=== PATIENT | male | born 1970 | race Two or more races ===

== ENCOUNTER 2020-04-14 10:32 | Outpatient (REF) | payer SELFPAY | END 2020-04-14 10:33 | disposition home or self-care (01) | LOC: HO.LAB 10:32 | PROVIDERS: Visit Provider Internal Medicine | DX: Z20.828 Contact with and (suspected) exposure to other viral communicable diseases (principal) | CPT/HCPCS: C9803; U0003 ==

== ENCOUNTER 2020-04-22 14:32 | Outpatient (REF) | payer SELFPAY | END 2020-04-22 14:33 | disposition home or self-care (01) | LOC: HO.LAB 14:32 | PROVIDERS: Visit Provider Internal Medicine | DX: Z20.828 Contact with and (suspected) exposure to other viral communicable diseases (principal) | CPT/HCPCS: C9803; U0003 ==

== ENCOUNTER 2020-06-04 11:06 | Emergency (ER) | payer OTHER, SELFPAY ==
[2020-06-04 12:41] VITALS: BP 169/88; PULSE 86; RESP 18; TEMP 37.3; O2SAT 98; BMI 28.0
--- NOTE | 2020-06-04 13:30 | ED_ITS ---
HPI - General Adult General Chief complaint: Headache Stated complaint: covid symptoms Time Seen by Provider: 06/04/20 12:52 Source: patient Mode of arrival: ambulatory Limitations: no limitations History of Present Illness HPI narrative: 50 y/o male presenting with generalized body aches and pains as well as headaches. He states he has also had low grade fevers & some mild nausea with 1 episode of diarrhea. He denies SOB, chest pain, cough, abdominal pain. No known COVID-19 exposure. MD complaint: flu-like symptoms Onset (ago): day(s) (1) Location: head Radiation: non-radiation Severity: moderate Severity scale (1-10): 8 Quality: aching Pain Consistency: constant Relieving factors: rest Exacerbating factors: movement Associated symptoms: fever/chills, headaches, loss of appetite, nausea/vomiting and weakness Treatments prior to arrival: none Related Data Allergies Allergy/AdvReac Type Severity Reaction Status Date / Time No Known Allergies Allergy Unverified 01/16/20 17:06 Review of Systems Review of Systems: Constitutional: No Fever, No Chills ENT/Mouth: No sore throat, No Rhinorrhea, No Swallowing Difficulty Cardiovascular: No Chest Pain, No SOB, No Orthopnea, No Edema Respiratory: No Cough, No Sputum, No Wheezing, No dyspnea Gastrointestinal: + Nausea, No Vomiting, + Diarrhea, No abdominal Pain Genitourinary: No Dysuria, No Urinary Frequency, No Hematuria Musculoskeletal: No joint pain, + Myalgias Skin: No Skin Lesions, No rash Neuro: + Weakness, No Numbness, No Dizziness, + Headache Heme/Lymph: No Bruising, No Lymphadenopathy Endocrine: No Polyuria, No Polydipsia [facility] Past Medical History Attestation statement: The following information was validated with the patient. Social History Social History Advance Directives: No Advance Directives Information Provided: No Physical Exam Vital Signs: Vital Signs: Last Vital Signs Temp 99.2 F 06/04/20 12:41 Pulse 86 06/04/20 12:41 Resp 18 06/04/20 12:41 BP 169/88 H 06/04/20 12:41 Pulse Ox 98 06/04/20 12:41 Body Mass Index 28.0 Appearance: Alert. Oriented X3. No acute distress. Eyes: Pnormal inspection ENT: Pharynx normal. Neck: Normal inspection. Neck supple. CVS: Normal heart rate and rhythm. Pulses normal. Respiratory: No respiratory distress. Breath sounds normal. Abdomen: Soft and nontender. +BS x4 Skin: Skin warm and dry. Normal skin color. Normal skin turgor. No rashes. Extremities: No lower extremity edema. Negative Mena's sign. Neuro: Oriented X 3. No motor deficit. No sensory deficit. Ambulates with steady gait. Course Course Course Narrative: 50 y/o male presenting with headache, body aches, low grade fever, diarrhea x1. Symptoms consistent with COVID-19. VSS and exam is benign. Will get Resp PCR panel & monitor. Reevaluation(s) Reevaluation #1: COVID positive. Patient counseled on diagnosis, management and warning signs to prompt urgent medical evaluation. patient expressed understanding. stable for d/c. Medical Decision Making Lab Data Labs: Lab Results 06/04/20 Range/Units 13:27 Coronavirus (PCR) POSITIVE A (Negative) Influenza Type A (PCR) NEGATIVE (Negative) Influenza Type B (PCR) NEGATIVE (Negative) RSV RNA Qual (PCR) NEGATIVE (Negative) Critical Care Time Critical Care Time Critical Care Time: No Discharge Plan Discharge Clinical Impression: COVID-19 Patient Disposition: Home, Self-Care Instructions: COVID-19 (Coronavirus Disease 2019) (ED) Additional Instructions: You were found to be COVID-19 POSITIVE today. Your exam and oxygen levels were normal. Rest. Drink plenty of fluids. Do not go out in public for the next 14 days. Take over the counter cold/flu medications as needed for your symptoms. Take Tylenol and/or Motrin as needed for fevers and body aches. Follow up with your doctor this week. If you shortness of breath worsens , if you develop difficulty breathing or any other concerning symptom come back to the ER for further evaluation. Stand Alone Forms: Work/School Release
[2020-06-04 14:30] LABS: Influenza A PCR NEGATIVE (Negative); Influenza B PCR NEGATIVE (Negative); Resp Syncy Virus RNA Qual PCR NEGATIVE (Negative); SARS COV2 PCR INHOUSE POSITIVE (Negative)
== END 2020-06-04 15:54 | disposition home or self-care (01) ==
PROVIDERS: Physician Assistant; Emergency Provider Emergency Medicine
DX: U07.1 COVID-19 (principal); R51.9 Headache, unspecified; R50.9 Fever, unspecified; M79.10 Myalgia, unspecified site
CPT/HCPCS: 0241U; 36415; 99283

== ENCOUNTER → 2020-10-20 10:08 | Outpatient (BNVA) | payer OTHER, SELFPAY | PROVIDERS: Visit Provider Physician Assistant | DX: S61.316A Laceration without foreign body of right little finger with damage to nail, initial encounter (principal); X58.XXXA Exposure to other specified factors, initial encounter | CPT/HCPCS: 12001; 73140; 90715; 99204 ==

== ENCOUNTER → 2020-10-22 11:16 | Outpatient (BNVA) | payer OTHER, SELFPAY | PROVIDERS: Visit Provider Physician Assistant Medical | DX: S61.316A Laceration without foreign body of right little finger with damage to nail, initial encounter (principal); W31.89XA Contact with other specified machinery, initial encounter | CPT/HCPCS: 99213 ==

== ENCOUNTER → 2020-10-30 10:03 | Outpatient (BNVA) | payer OTHER, SELFPAY | PROVIDERS: Visit Provider Physician Assistant Medical | DX: S61.32 Laceration with foreign body of finger with damage to nail (principal); X58.XXXD Exposure to other specified factors, subsequent encounter | CPT/HCPCS: 99212 ==

== ENCOUNTER 2021-09-25 08:08 | Outpatient (REF) | payer OTHER, SELFPAY ==
[2021-09-25 09:46] LABS: Hematocrit 43.4 % (42.0-52.0); Hemoglobin 14.8 g/dl (14.0-18.0); Mean Corpuscular HGB Conc 34.1 g/dl (31.0-36.0); Mean Corpuscular Hemoglobin 30.1 pg (27.0-33.0); Mean Corpuscular Volume 88.4 fL (80.0-98.0); Mean Platelet Volume 9.5 fL (9.4-12.4); Platelet Count 306 X10*3/uL (160-400); Red Blood Count 4.91 X10*6/uL (4.60-5.80); Red Cell Distribution Width 12.3 % (11.0-16.0); White Blood Count 4.6 X10*3/uL (4.8-10.8)
[2021-09-25 10:11] LABS: Estimated Average Glucose 126 mg/dL
[2021-09-25 10:20] LABS: Alanine Aminotransferase 37 U/L (0-40); Albumin Level 4.2 g/dL (3.5-5.0); Alkaline Phosphatase 54 U/L (39-117); Anion Gap 12 (12-20); Aspartate Amino Transferase 23 U/L (5-37); Bilirubin Total 0.6 mg/dL (0.0-1.0); Blood Urea Nitrogen 21 mg/dL (9-16); Calcium 9.7 mg/dL (8.4-10.2); Carbon Dioxide 23 mmol/L (22-29); Chloride 107 mmol/L (96-108); Cholesterol 203 mg/dL; Estimated Glomerular Filt Rate > 60; Glucose Random 111 mg/dL (60-115); HDL Cholesterol 34 mg/dL; LDL Cholesterol Calculated 154 mg/dl; Potassium 4.2 mmol/L (3.3-5.1); Sodium 138 mmol/L (135-145); Total Protein 7.6 g/dL (6.5-8.0); Triglycerides 75 mg/dL
[2021-09-25 10:42] LABS: Prostate Specific Antigen 0.79 ng/mL (<0.05-4.0)
[2021-09-25 13:30] LABS: CT PCR NOT DETECTED (Not Detect.); NG PCR NOT DETECTED (Not Detect.)
[2021-09-28 08:13] LABS: ~HepC Num1 0.07 S/CO (0.00-0.79); ~Hepatitis C Antibody Nonreactive (Nonreactive)
[2021-09-28 08:15] LABS: HBS Num1 78.93 mIU/mL (0-7.99); HBsAGNum1 0.22 S/CO (0.00-0.99); HIV AB/AG Nonreactive (Nonreactive); HIV Num 1 0.09 S/CO (0.00-0.99); Hepatitis B Surface Antigen Negative (Negative); ~Hepatitis B Surface Antibody REACTIVE (Nonreactive)
[2021-09-29 09:00] LABS: Syphilis Screen Nonreactive (Nonreactive)
[2021-09-29 09:31] LABS: Hepatitis A Antibody IgG Nonreactive (Nonreactive); ~Hepatitis A Antibody IgG 0.32 S/CO (0.00-0.99)
== END 2021-09-25 08:09 | disposition home or self-care (01) ==
LOC: HO.LAB 08:08
PROVIDERS: PCP Internal Medicine Geriatric Medicine; Visit Provider Internal Medicine Geriatric Medicine
DX: Z11.4 Encounter for screening for human immunodeficiency virus [HIV] (principal); Z11.2 Encounter for screening for other bacterial diseases; Z12.5 Encounter for screening for malignant neoplasm of prostate; Z13.220 Encounter for screening for lipoid disorders; I10 Essential (primary) hypertension; Z72.89 Other problems related to lifestyle
CPT/HCPCS: 80053; 80061; 83036; 84153; 85027; 86592; 86706; 86708; 86780; 86803; 87340; 87389; 87491; 87591

== ENCOUNTER 2021-10-01 14:40 | Outpatient (REF) | payer OTHER, SELFPAY ==
[2021-10-01 15:16] LABS: COVID-19 Test Negative (Negative)
== END 2021-10-01 14:41 | disposition home or self-care (01) ==
LOC: HO.LAB 14:40
PROVIDERS: Visit Provider Internal Medicine
DX: Z20.822 Contact with and (suspected) exposure to COVID-19 (principal)
CPT/HCPCS: 87635; C9803

== ENCOUNTER → 2021-10-18 10:27 | Outpatient (BNVA) | payer OTHER, SELFPAY | PROVIDERS: PCP Internal Medicine Geriatric Medicine; Visit Provider Surgery | DX: K42.9 Umbilical hernia without obstruction or gangrene (principal); M62.08 Separation of muscle (nontraumatic), other site; R10.9 Unspecified abdominal pain; I10 Essential (primary) hypertension; Z87.898 Personal history of other specified conditions | CPT/HCPCS: 99202 ==

== ENCOUNTER 2021-12-02 13:11 | Outpatient (REF) | payer OTHER, SELFPAY ==
[2021-12-02 14:09] LABS: COVID-19 Test Positive (Negative)
== END 2021-12-02 13:12 | disposition home or self-care (01) ==
LOC: HO.LAB 13:11
PROVIDERS: Visit Provider Internal Medicine
DX: Z20.822 Contact with and (suspected) exposure to COVID-19 (principal)
CPT/HCPCS: 87635; C9803

== ENCOUNTER 2021-12-28 16:43 | Outpatient (REF) | payer OTHER, SELFPAY ==
--- NOTE | ~2021-12-28 | XR_ITS ---
EXAMINATION: XR SHOULDER, LEFT CLINICAL INFORMATION: Pain. COMPARISON: Radiograph of the left shoulder 11/12/2018. TECHNIQUE: Four views of the left shoulder. FINDINGS: Chronic superolateral deformity of the humeral head adjacent to the greater trochanter suspicious for a Hill-Sachs injury. No acute fracture or malalignment. Mild degenerative osteoarthritis of the acromioclavicular joint. No significant soft tissue abnormality. XR/XR shoulder LT min 2V IMPRESSION: Findings suspicious for chronic Hill-Sachs injury. No acute fracture or malalignment. Mild osteoarthrosis of the AC joint.
== END 2021-12-28 16:44 | disposition home or self-care (01) ==
LOC: HO.XRAY 16:43
PROVIDERS: PCP Internal Medicine Geriatric Medicine; Visit Provider Internal Medicine Geriatric Medicine
DX: M25.512 Pain in left shoulder (principal)
CPT/HCPCS: 73030

== ENCOUNTER 2022-01-12 05:26 | Emergency (ER) | payer OTHER, SELFPAY ==
[2022-01-12 05:36] VITALS: BP 159/100; PULSE 85; RESP 16; TEMP 36.6; O2SAT 96; BMI 33.2
--- NOTE | 2022-01-12 05:58 | PC.NURSE ---
Pt. in room with foot pain d/t blister that popped open and drained fluid.
--- NOTE | 2022-01-12 06:43 | ED.EXTPRO ---
HPI - Extremity Problem General Chief complaint: Extremity Problem Stated complaint: Bilateral foot pain/No inj Time Seen by Provider: 01/12/22 06:42 Source: patient Mode of arrival: ambulatory Limitations: no limitations History of Present Illness Complaint: other (rash on foot) Onset (ago): week(s) (2) Pain Consistency: constant Location: left (foot) Quality: dull Radiation: none Relieving factors: medication (using cream fungal and betamethasone from 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) Related Data Home Medications Medication Instructions Recorded Confirmed amlodipine 10 mg tablet 10 mg PO DAILY 10/18/21 10/18/21 diclofenac sodium 1 % topical gel g topical BID 10/18/21 10/18/21 Allergies Allergy/AdvReac Type Severity Reaction Status Date / Time No Known Allergies Allergy Unverified 10/18/21 10:39 Review of Systems Review of Systems: Constitutional : No Fever, No Chills ENT/Mouth : No sore throat, No Rhinorrhea Eyes: No Eye Pain, No Swelling, No Redness Cardiovascular : No Chest Pain, No SOB Respiratory : No Cough, No Sputum Gastrointestinal : No Nausea, No Vomiting, No Diarrhea, No abdominal Pain Genitourinary : No Dysuria, No Hematuria Musculoskeletal : No joint pain, No Myalgias, No Joint Swelling Skin : No Skin Lesions, positive skin rash Neuro : No Weakness, No Numbness, No Headache PMFSH Past Medical History Attestation statement: The following information was validated with the patient. Medical History History of prediabetes HTN (hypertension) Family History Family History Maternal Aunt Breast cancer Social History Social History Alcohol intake: current Alcohol intake frequency: holidays/special occasions only Patient Tobacco Use Status: Never used Tobacco Advance Directives: No Advance Directives Information Provided: No Physical Exam Vital Signs: Vital Signs: Last Vital Signs Temp 98 F 01/12/22 05:36 Pulse 85 01/12/22 05:36 Resp 16 01/12/22 05:36 BP 159/100 H 01/12/22 05:36 Pulse Ox 96 01/12/22 05:36 O2 Del Method 01/12/22 05:36 BMI result Body Mass Index 33.2 Appearance: Alert. Oriented X3. No acute distress. Eyes: Pupils equal, round and reactive to light. ENT: Pharynx normal. Neck: Normal inspection. Neck supple. CVS: Pulses normal. Respiratory: No respiratory distress. Abdomen: Soft and nontender. Skin: Skin warm and dry. Normal skin color. L foot thickened callous areas but with open healing pink soft area on plantar surface of the foot fluid filled clear blister noted no erythema no warmth no yellow drainage no fluctuance no maceration Extremities: No lower extremity edema. Neuro: Oriented X 3. No motor deficit. No sensory deficit. MDM - Extremity (Nontraumatic) MDM Narrative Medical decision making narrative: 51 yo male with hx of HTN, pre-diabetes has callouses on the feet L has opened currently on athlets foot cream now has clear draining blister no signs of infection, still has some thickened areas of callous at this time will instruct good wound care and refer to podiatry Discharge Plan Discharge Clinical Impression: Callus of foot Patient Disposition: Home, Self-Care Instructions: Blister (ED) Additional Instructions: return to ED for any worsening symptoms or concerns you need to see a restorative care technician continue cream between toes monitor for increased redness, yellow drainage, fevers - keep clean and dry Prescriptions: No Action amlodipine 10 mg tablet 10 mg PO DAILY diclofenac sodium 1 % gel topical BID Referrals: Alo Lopez MD [Physician] - 1 week Stand Alone Forms: Work/School Release
== END 2022-01-12 07:19 | disposition home or self-care (01) ==
PROVIDERS: Emergency Provider Emergency Medicine; PCP Internal Medicine Geriatric Medicine
DX: L84 Corns and callosities (principal)
CPT/HCPCS: 99282; 99283

== ENCOUNTER 2022-01-28 05:37 | Outpatient (REF) | payer OTHER, SELFPAY ==
--- NOTE | ~2022-01-28 | CT_ITS ---
EXAMINATION: CT ABDOMEN AND PELVIS WITHOUT CONTRAST CLINICAL INFORMATION: Abdominal pain COMPARISON: Previous CT of the abdomen and pelvis most recent from 2012 TECHNIQUE: Multidetector volumetric imaging was performed from the superior aspect of the liver through the pubic symphysis. Sagittal and coronal reformatted images were obtained on the technologist's workstation. This CT examination was performed using dose optimization techniques as appropriate, variously including the following: *Automated exposure control *Adjustment of mA and/or kV according to patient size (this includes techniques or standardized protocols for targeted exams where dose is matched to indication/reason for exam; i.e. extremities or head) *Use of iterative reconstruction technique DLP: 682 mGy-cm FINDINGS: LUNG BASES: The visualized lung bases are unremarkable. LIVER, GALLBLADDER, AND BILIARY TREE: There is fatty infiltration of the liver and areas of focal fatty sparing. The liver is upper normal in size. No focal liver lesion or biliary duct dilatation. Normal gallbladder. PANCREAS: Unremarkable. SPLEEN: Unremarkable. ADRENAL GLANDS: Unremarkable. KIDNEYS AND URETERS: The kidneys are normal in size, shape, and attenuation. No hydronephrosis, hydroureter, or calculi seen. No perinephric stranding. BLADDER: Not optimally distended. GASTROINTESTINAL TRACT: There is stool throughout the colon questionable for constipation. The small and large bowel are otherwise unremarkable. The appendix is not seen. There are no inflammatory changes in the right lower quadrant. ABDOMINAL WALL: There is a midline ventral or supraumbilical hernia containing fat, 3.7 cm above the umbilicus. There is a small umbilical hernia containing fat. No inguinal hernia. LYMPH NODES: There is bilateral inguinal lymphadenopathy, left greater than right. There is question of some mild fat stranding surrounding one of the larger left inguinal lymph nodes questionable for lymphadenitis. No other adenopathy. No ascites. VASCULAR: Unremarkable. PELVIC VISCERA: Unremarkable OSSEOUS STRUCTURES: Degenerative changes of the lower lumbar spine. CT/CT abdomen pelvis wo IV con IMPRESSION: Fatty infiltration of the liver. Stool throughout the colon questionable for constipation. Umbilical and supraumbilical hernias containing fat. Prominent inguinal lymph nodes, left greater than right and question left inguinal lymphadenitis. Fleischner guidelines were followed.
[2022-01-28] MEDS: Barium Sulfate Oral (Mocha) 450 ML ORAL.SUSP 900 ML PO (08:14)
== END 2022-01-28 05:38 | disposition home or self-care (01) ==
LOC: HO.CT 05:37
PROVIDERS: PCP Internal Medicine Geriatric Medicine; Visit Provider Surgery
DX: K42.9 Umbilical hernia without obstruction or gangrene (principal); M62.08 Separation of muscle (nontraumatic), other site
CPT/HCPCS: 74176

== ENCOUNTER → 2022-02-04 16:09 | Outpatient (BNVA) | payer OTHER, SELFPAY | PROVIDERS: PCP Internal Medicine Geriatric Medicine; Visit Provider Surgery | DX: M62.08 Separation of muscle (nontraumatic), other site (principal); K42.9 Umbilical hernia without obstruction or gangrene; R73.03 Prediabetes; L73.9 Follicular disorder, unspecified; Z68.33 Body mass index [BMI] 33.0-33.9, adult | CPT/HCPCS: 99212 ==

== ENCOUNTER 2022-02-18 15:23 | Outpatient (REF) | payer OTHER, SELFPAY ==
[2022-02-18 16:01] LABS: COVID-19 Test Negative (Negative); IDNOW Serial# 16C4AD1C
== END 2022-02-18 15:24 | disposition home or self-care (01) ==
LOC: HO.LAB 15:23
PROVIDERS: Visit Provider Internal Medicine
DX: Z20.822 Contact with and (suspected) exposure to COVID-19 (principal)
CPT/HCPCS: 87635; C9803

== ENCOUNTER 2022-02-23 11:45 | Outpatient (REF) | payer OTHER, SELFPAY ==
--- NOTE | ~2022-02-23 | US_ITS ---
EXAMINATION: US VENOUS ULTRASOUND WITH DOPPLER LOWER EXTREMITY, LEFT CLINICAL INFORMATION: Left lower extremity swelling. COMPARISON: None TECHNIQUE: Ultrasound of the deep veins is performed from the hip to the calf with compression sonography and color and pulse Doppler assessment. Spectral analysis with color-flow imaging is performed. FINDINGS: There is normal venous compression and respiratory variation and augmented flow. The visualized common femoral vein, superficial femoral vein, profunda femoral vein, popliteal vein, and the trifurcation region shows no evidence of deep venous thrombosis. No left popliteal cyst. Mild subcutaneous edema in the left calf. Reniform left inguinal lymph node measures up to 2.4 cm in long axis. If the patient's symptoms persist, followup ultrasound in 5 days 7 days might be of value to exclude proximal propagation from a non-visualized calf vein. US/US venous duplex LE LT IMPRESSION: No evidence for deep venous thrombosis in the visualized veins of the left lower extremity. Mild subcutaneous edema in the left calf.
== END 2022-02-23 11:46 | disposition home or self-care (01) ==
LOC: HO.US 11:45
PROVIDERS: PCP Internal Medicine Geriatric Medicine; Visit Provider Internal Medicine Geriatric Medicine
DX: R60.0 Localized edema (principal)
CPT/HCPCS: 93971

== ENCOUNTER → 2022-03-04 10:14 | Outpatient (BNVA) | payer OTHER, SELFPAY | PROVIDERS: PCP Internal Medicine Geriatric Medicine; Referring Provider Internal Medicine Geriatric Medicine; Visit Provider Surgery | DX: K42.9 Umbilical hernia without obstruction or gangrene (principal); K43.9 Ventral hernia without obstruction or gangrene; R73.03 Prediabetes; B35.3 Tinea pedis; L03.116 Cellulitis of left lower limb; L02.416 Cutaneous abscess of left lower limb; Z68.33 Body mass index [BMI] 33.0-33.9, adult | CPT/HCPCS: 99212 ==

== ENCOUNTER → 2022-03-11 15:48 | Outpatient (BNVA) | payer OTHER, SELFPAY | PROVIDERS: PCP Internal Medicine Geriatric Medicine; Visit Provider Dietitian, Registered | DX: E66.9 Obesity, unspecified (principal) | CPT/HCPCS: 97802 ==

== ENCOUNTER 2022-03-15 17:00 | Outpatient (RCR) | payer OTHER, SELFPAY | END 2022-03-22 18:04 | disposition home or self-care (01) | LOC: HO.PT 17:00 | PROVIDERS: PCP Internal Medicine Geriatric Medicine; Visit Provider Internal Medicine Geriatric Medicine | DX: M25.512 Pain in left shoulder (principal) | CPT/HCPCS: 97110; 97140; 97161 ==

== ENCOUNTER → 2022-05-13 15:34 | Outpatient (BNVA) | payer OTHER, SELFPAY | PROVIDERS: PCP Internal Medicine Geriatric Medicine; Visit Provider Surgery | DX: K43.9 Ventral hernia without obstruction or gangrene (principal); R73.03 Prediabetes; M62.08 Separation of muscle (nontraumatic), other site; K42.9 Umbilical hernia without obstruction or gangrene | CPT/HCPCS: 99212 ==

== ENCOUNTER 2022-06-02 08:28 | Day surgery (SDC) | payer OTHER, SELFPAY ==
[2022-05-26 15:41] VITALS: BMI 33.7
[2022-06-02] VITALS (13 sets, daily range): BP systolic 115–144; BP diastolic 66–94; PULSE 92–105; RESP 13–18; TEMP 36.4–36.6; O2SAT 93–100
[2022-06-02] MEDS: Lactated Ringers 1,000 ML 100 ML IVCONT (08:53)
--- NOTE | 2022-06-02 09:39 | HO.ANESPROP2 ---
HPI - Anesthesia Eval Consult details Narrative: 52 M for umblical hernia repair [facility] Active Problems Active Problems: All Active Problems (Updated 03/04/22 @ 10:39 by Eric Chapin MD) COVID-19 (Acute) Umbilical hernia (Acute) Diastasis recti (Acute) Abdominal pain (Acute) BMI 33.0-33.9,adult (Acute) Stage 1 type 1 prediabetes (Acute) Folliculitis (Acute) Ventral hernia (Acute) Tinea pedis (Acute) Cellulitis and abscess of left lower extremity (Acute) Past Medical History Medical History History of prediabetes HTN (hypertension) Functional capacity: independent ambulation Family History Family History Maternal Aunt Breast cancer Family history of problems with anesthesia: No Surgical History Surgical History No pertinent past surgical history History of Problems with Anesthesia: No (Only had local anesthesia in the past) Social History Social History Alcohol intake: current Alcohol intake frequency: holidays/special occasions only Patient Tobacco Use Status: Never used Tobacco Are you DNR?: No Advance Directives: No Advance Directives Information Provided: Yes Advance Directives on File: No Recently lost weight without trying: No Eating poorly because of decreased appetite: No Nutrition Risks: No Nutritional Risk Meds Allergies Allergy/AdvReac Type Severity Reaction Status Date / Time No Known Allergies Allergy Verified 06/02/22 08:56 Active Medications: Current Medications Lactated Ringer's (Lr) 1,000 mls @ 100 mls/hr IVCONT .Q10H ON LICENSE OF [facility] Last Admin: 06/02/22 08:53 Dose: 100 mls/hr Lactated Ringer's (Lr) 1,000 mls @ 50 mls/hr IVCONT .Q20H ON LICENSE OF [facility] Home Medications Medication Instructions Recorded Confirmed Last Taken Type amlodipine 10 mg tablet 10 mg PO DAILY 10/18/21 06/02/22 Unknown History diclofenac sodium 1 % topical gel g topical BID 10/18/21 05/13/22 Unknown History Exam Exam Date and Time: June 02, 2022 0939 Height,Weight and Vital Signs: Height 5 ft 9 in Weight 103.589 kg Last Vital Signs Temp 97.9 F 06/02/22 08:56 Pulse 101 H 06/02/22 08:56 Resp 18 06/02/22 08:56 BP 140/92 H 06/02/22 08:56 Pulse Ox 98 06/02/22 08:56 O2 Del Method 06/02/22 08:56 Airway Mallampati Class: III TM Dist: >3cm Neck ROM: Full Loose/Missing/Broken Teeth: Yes (Poor dentition ) Heart: S1,S2 Lungs: b/l breath sounds Assessment and Plan Assessment Anesthesia Assessment: Anesthesia Plan Discussed and Chart Reviewed Final Anesthetic Review Family History of Problems with Anesthesia: No History of Problems with Anesthesia: No (Only had local anesthesia in the past) NPO: Yes ASA Class: II Final Preanesthetic Review: Meds/Allgs Chart Reviewed, Consent Obtained/Reviewed and Anes Risks/Benef Reviewed Patient Risk: Intermediate Procedure Risk: Intermediate Anesthetic Plan Anesthetic Plan: GA Disposition: Standard PACU
--- NOTE | 2022-06-02 09:44 | PC.NURSE ---
Dr. Chapin assessed sparce red spots on abdomen. Okay to proceed.
--- NOTE | 2022-06-02 09:46 | MHC.SHP ---
Pre-Procedural Eval Section A Date of Service: 06/02/22 The patient is an INPATIENT: No The History & Physical has been completed within 30 days and I have reviewed it.: Yes Section B Chief Complaint: Ventral hernia,Umbilical hernia without obstructio Allergies: Allergies Allergy/AdvReac Type Severity Reaction Status Date / Time No Known Allergies Allergy Verified 06/02/22 08:56 Plan I have reviewed the history and physical and performed a pertinent physical examination on my patient. No changes have occurred unless specified. Time Spent With Patient Time: Total time managing care of this patient today ____ minutes.
--- NOTE | 2022-06-02 09:48 | P.OP_ITS ---
Operative Note Operative Note Date of Service: 06/02/22 Narrative: Preop diagnosis: [incarcerated Ventral and umbilical hernia] Postop diagnosis: [3.2 cm ventral hernia & 1.6 cm umbilical hernia with viable properitoneal fat; omental adhesions to the midline requiring lysis of adhesion] Procedure: [Laparoscopic repair with primary closure of 3.2 cm ventral hernia defect, umbilical hernia repair and lysis of adhesions taking 36 minutes] Surgeon: Eric Chapin MD Assist: [] Anesthesia: [General] Estimated blood loss: [10cc] Specimen: [none] Intraoperative findings: [Omental adhesions from the epigastrium to below the umbilical hernia containing viable omentum. Hernia defects in the ventral midline defects as described.] Indications: [The patient is a 52-year-old gentleman with a history of hypertension who presented with a significant diastasis recti and a symptomatic ventral hernia. Because of his diastasis and anatomy, I was concerned about additional hernias in on CT of the abdomen and pelvis, a 3.2 cm viable fat containing ventral hernia was noted and a 1.6 cm umbilical hernia noted as well. Since the patient is symptomatic, we discussed repair including the fact that his diastasis recti would not be changed. All of this was done with an historic interpreter. The inherent risks of bleeding, infection, hernia recurrence in the setting of weight gain, activity restrictions postoperatively and the possibility of mesh complications that could require another procedure were all reviewed and apparently understood. Patient seemed understand his options and wanted to proceed. His care was coordinated with his PCP given significant left lower extremity fungal infection and cellulitis that required treatment.] Procedure: [The patient was identified in the preoperative holding area by myself and via historic interpreter confirmed no interval change. The procedure was also confirmed. The patient was identified in the preoperative holding area by myself and the operative site marked by me confirming a both an umbilical & incarcertated ventral hernia. The patient voided this bladder superintendent drilling and production, received antibiotics per protocol and sequential compression stockings were in place. The operative field hair had been clipped in preop holding. The patient was ag ain identified in the operating suite and placed supine on the table. See anesthesia notes for full details regarding anesthesia care and management. The patient was then widely prepped and draped in the usual manner using chlorhexidine. An appropriate time-out was performed. The patient's abdomen was accessed through a stab incision in the left upper quad using preemptive local. Veress needle was placed without incident, an appropriate drop test performed and used to obtain a pneumoperitoneum of 15 mmHg using carbon dioxide. Opening pressure was 8 mmHg. The abdomen was then accessed with a 5 mm/30 degree laparoscopic for a 5 mm optical trocar without incident through the right anterior axillary line at the level of the umbilicus. I then inspected for evidence of injury from either the Veress needle or trocar and found none. The patient was positioned in gentle Trendelenburg position and additional 5 mm trocars placed using preemptive local under direct laparoscopic vision in the patient's left lower quadrant and a 12 mm placed in the left upper quadrant. Laparoscopy confirmed both ventral and umbilical hernia, both incarcerated and containing viable omentum and properitoneal fat. Preperitoneal fat was dissected from the retrorectus fashion using a grasper 5mm [place] tip Ligasure to allow placement of an Echo mesh. Hemostasis was obtained with electrocautery. Once the sac was reduced, the fascial defect was closed using an absorbable 0 V-Lock suture at the 3.2cm ventral fascial defect. Next, Echo mesh measuring 6 round was inserted through the 12 mm trocar and deployed. A stab incision was made through the abdominal wall skin over the hernia, a suture passer used to grasp the blue inflation tube which was then delivered, cut and inflated. The mesh was oriented with overlap and absorbable tacks used to secure the mesh. In the left lateral abdomen, wall placing tacks, some bleeding was demonstrated that was rendered hemostatic with direct pressure. The abdomen was then deflated to 9 mmHg, the bed return to neutral and trocars removed. The 12 mm fascia was closed 0 Polysorb suture and skin was closed with 4-0 Monocryl subcuticular sutures. The abdomen was then washed and dried, and Mastisol and Steri-Strips applied followed by Band-Aids. Patient tolerated the procedure well was sent to the recovery area in stable condition. All sponge and instrument counts were correct x2. ]
[2022-06-02] MEDS: HYDROmorphone HCl 0.5 MG/0.5 ML SYRINGE 0.25 MG IVPUSH (14:15)
[2022-06-02] MEDS: Acetaminophen 325 MG TABLET 650 MG PO ×2 (14:28)
[2022-06-02] MEDS: oxyCODONE HCl Immed Release 5 MG TABLET 10 MG PO ×2 (14:29→14:38)
== END 2022-06-02 15:52 | disposition home or self-care (01) ==
PROVIDERS: PCP Internal Medicine Geriatric Medicine; Visit Provider Surgery
PROC: 0WQF4ZZ Repair Abdominal Wall, Percutaneous Endoscopic Approach (ICD-10-PCS; CPT 49594; principal; 2022-06-02 10:10)
PROC: 0WQF4ZZ Repair Abdominal Wall, Percutaneous Endoscopic Approach (ICD-10-PCS; CPT 49594; 2022-06-02 10:10)
DX: K42.0 Umbilical hernia with obstruction, without gangrene (principal); K43.6 Other and unspecified ventral hernia with obstruction, without gangrene
CPT/HCPCS: 49594; 49329; C1781; J0690; J1170; J1885; J2405; J3010

== ENCOUNTER → 2022-06-10 11:11 | Outpatient (BNVA) | payer OTHER, SELFPAY | PROVIDERS: PCP Internal Medicine Geriatric Medicine; Visit Provider Surgery | DX: Z13.89 Encounter for screening for other disorder (principal) ==

== ENCOUNTER → 2022-06-21 13:02 | Outpatient (BNVA) | payer OTHER, SELFPAY | PROVIDERS: PCP Internal Medicine Geriatric Medicine; Visit Provider Surgery | DX: Z13.89 Encounter for screening for other disorder (principal) ==

== ENCOUNTER → 2022-07-01 14:30 | Outpatient (BNVA) | payer OTHER, SELFPAY | PROVIDERS: PCP Internal Medicine Geriatric Medicine; Visit Provider Surgery | DX: Z13.89 Encounter for screening for other disorder (principal) ==

== ENCOUNTER → 2022-07-14 13:25 | Outpatient (BNVA) | payer OTHER, SELFPAY | PROVIDERS: PCP Internal Medicine Geriatric Medicine; Visit Provider Surgery | DX: R10.32 Left lower quadrant pain (principal); R73.03 Prediabetes | CPT/HCPCS: 99212 ==

== ENCOUNTER 2022-07-20 14:05 | Outpatient (REF) | payer OTHER, SELFPAY ==
[2022-07-20 14:53] LABS: COVID-19 Test Negative (Negative); IDNOW Serial# 08D9AD1C
== END 2022-07-20 14:06 | disposition home or self-care (01) ==
LOC: HO.LAB 14:05
PROVIDERS: Visit Provider Internal Medicine
DX: Z20.822 Contact with and (suspected) exposure to COVID-19 (principal)
CPT/HCPCS: 87635; C9803

== ENCOUNTER 2022-07-23 07:03 | Outpatient (REF) | payer OTHER, SELFPAY ==
[2022-07-23 07:14] LABS: MANUAL DIFF FLAG NO
[2022-07-23 07:40] LABS: Basophils Absolute Auto 0.1 X10*3/uL (0.0-0.2); Eosinophils Absolute Auto 0.1 X10*3/uL (0.0-0.4); Eosinophils Percent Auto 2.9 % (0-4); Hematocrit 43.3 % (42.0-52.0); Hemoglobin 14.6 g/dl (14.0-18.0); Lymphocytes Absolute Auto 2.5 X10*3/uL (1.2-4.9); Lymphocytes Percent Auto 50.9 % (20-40); Mean Corpuscular HGB Conc 33.7 g/dl (31.0-36.0); Mean Corpuscular Hemoglobin 28.9 pg (27.0-33.0); Mean Corpuscular Volume 85.7 fL (80.0-98.0); Mean Platelet Volume 9.1 fL (9.4-12.4); Monocytes Absolute Auto 0.5 X10*3/uL (0.1-1.2); Monocytes Percent Auto 10.8 % (2-11); Neutrophils Absolute Auto 1.7 x10*3/uL (2.0-8.3); Neutrophils Percent Auto 34.4 % (45-73); Platelet Count 360 X10*3/uL (160-400); Red Blood Count 5.05 X10*6/uL (4.60-5.80); Red Cell Distribution Width 12.5 % (11.0-16.0); White Blood Count 4.8 X10*3/uL (4.8-10.8)
[2022-07-23 07:47] LABS: Estimated Average Glucose 126 mg/dL; Hemoglobin A1C 149.9226 umol/L
[2022-07-23 08:10] LABS: Alanine Aminotransferase 34 U/L (0-40); Albumin Level 4.2 g/dL (3.5-5.0); Alkaline Phosphatase 59 U/L (39-117); Anion Gap 13 (12-20); Aspartate Amino Transferase 18 U/L (5-37); Bilirubin Total 0.7 mg/dL (0.0-1.0); Blood Urea Nitrogen 22 mg/dL (9-16); Calcium 9.5 mg/dL (8.4-10.2); Carbon Dioxide 25 mmol/L (22-29); Chloride 107 mmol/L (96-108); Estimated Glomerular Filt Rate > 60; Glucose Random 96 mg/dL (60-115); Potassium 4.4 mmol/L (3.3-5.1); Sodium 141 mmol/L (135-145); Total Protein 7.3 g/dL (6.5-8.0)
[2022-07-23 10:00] LABS: Amphetamine Screen Urine Not Detected (Not Detect); Barbiturates, Urine Not Detected (Not Detect); Benzodiazepines Screen Urine Not Detected (Not Detect); Cannabinoid Screen Urine Not Detected (Not Detect); Cocaine Screen Urine Not Detected (Not Detect); Fentanyl, urine Not Detected (Not Detect); Opiate Screen Urine Not Detected (Not Detect); Phencyclidine Screen Urine Not Detected (Not Detect)
[2022-07-27 22:23] LABS: Cotinine, U 20 ng/mL; Nicotine, U 32 ng/mL
== END 2022-07-23 07:04 | disposition home or self-care (01) ==
LOC: HO.LAB 07:03
PROVIDERS: PCP Internal Medicine Geriatric Medicine; Visit Provider Surgery
DX: R10.32 Left lower quadrant pain (principal); R73.03 Prediabetes
CPT/HCPCS: 80053; 80307; 80323; 83036; 85025

== ENCOUNTER 2022-08-09 13:51 | Outpatient (REF) | payer OTHER, SELFPAY ==
--- NOTE | ~2022-08-09 | CT_ITS ---
EXAMINATION: CT ABDOMEN AND PELVIS WITH CONTRAST CLINICAL INFORMATION: Left lower quadrant pain. History of ventral and umbilical hernia repair with mesh June 2022 COMPARISON: Previous CT of the abdomen and pelvis most recent December 2021 TECHNIQUE: Multidetector volumetric images were obtained from the superior aspect of the liver through the pubic symphysis following administration 85 mL of Omnipaque 350 intravenous contrast. Sagittal and coronal reformatted images were obtained on the technologist's workstation. Oral contrast: Yes This CT examination was performed using dose optimization techniques as appropriate, variously including the following: *Automated exposure control *Adjustment of mA and/or kV according to patient size (this includes techniques or standardized protocols for targeted exams where dose is matched to indication/reason for exam; i.e. extremities or head) *Use of iterative reconstruction technique DLP: 602 mGy-cm FINDINGS: LUNG BASES: The visualized lung bases are unremarkable. LIVER, GALLBLADDER, AND BILIARY TREE: The liver is normal in size, shape, and attenuation. No focal hepatic lesion or biliary ductal dilatation is present. The gallbladder is unremarkable with no evidence of radiopaque gallstones, gallbladder wall thickening, or obvious pericholecystic inflammatory changes. PANCREAS: Unremarkable. SPLEEN: Unremarkable. ADRENAL GLANDS: Unremarkable. KIDNEYS AND URETERS: The kidneys are normal in size, shape, and attenuation. No hydronephrosis, hydroureter, or calculi seen. No perinephric stranding. BLADDER: Unremarkable. GASTROINTESTINAL TRACT: Mild diverticulosis of the colon. No evidence of diverticulitis. Stool throughout the colon questionable for mild constipation. No evidence of obstruction. Normal small bowel. Appendix not seen. ABDOMINAL WALL: No hernia or fluid collection. LYMPH NODES: Normal. VASCULAR: Unremarkable. PELVIC VISCERA: Unremarkable. OSSEOUS STRUCTURES: Degenerative changes of the lower lumbar spine and right sacroiliac joint. CT/CT abdomen pelvis w IV con IMPRESSION: Mild diverticulosis of the colon. No evidence of diverticulitis. Question constipation. Fleischner guidelines were followed.
[2022-08-09] MEDS: Barium Sulfate Oral (Vanilla) 450 ML ORAL.SUSP 900 ML PO (16:03)
[2022-08-09] MEDS: iohexoL 350 MG/ML 100 ML INFUS..BTL IV (16:18)
== END 2022-08-09 13:52 | disposition home or self-care (01) ==
LOC: HO.CT 13:51
PROVIDERS: PCP Internal Medicine Geriatric Medicine; Visit Provider Surgery
DX: R10.32 Left lower quadrant pain (principal); R73.03 Prediabetes
CPT/HCPCS: 74177; Q9967

== ENCOUNTER → 2022-08-19 14:45 | Outpatient (BNVA) | payer OTHER, SELFPAY | PROVIDERS: PCP Internal Medicine Geriatric Medicine; Visit Provider Surgery | DX: M62.08 Separation of muscle (nontraumatic), other site (principal); R10.32 Left lower quadrant pain; K43.9 Ventral hernia without obstruction or gangrene | CPT/HCPCS: 99212 ==

== ENCOUNTER 2022-09-30 06:56 | Emergency (ER) | payer SELFPAY ==
[2022-09-30 07:03] VITALS: BP 144/92; PULSE 94; RESP 16; TEMP 37; O2SAT 97; BMI 30.9
--- NOTE | 2022-09-30 07:18 | ED_ITS ---
HPI - Nausea/Vomiting/Diarrhea General Chief complaint: Nausea/Vomiting/Diarrhea Stated complaint: Vomiting, diarrhea Time Seen by Provider: 09/30/22 07:10 Source: patient Mode of arrival: ambulatory Limitations: no limitations History of Present Illness HPI Narrative: 52 year old male with a history significant for HTN, prediabetes, umbilical & ventral hernia, and diastasis recti 1 mo s/p laparoscopic hernia repair who presents today with diarrhea, vomiting, and periumbilical abdominal pain for the past 24 hours. Patient reports 5 episodes of watery diarrhea and one episode of vomiting yesterday. Last episode of diarrhea was upon arriving in the ED. No episode of vomiting today. Additionally complains of periumbilical abdominal pain and generalized muscle weakness/ pain. No hematchezia or hematemesis. No fever or chills. He reports his friend visited earlier this week who may have had COVID. MD elicited complaint: vomiting, diarrhea and abdominal pain Pertinent past history: hernia and abdominal surgery Onset (ago): day(s) (1) Description of diarrhea: watery Associated abdominal pain: Yes Location of pain: periumbilical Pain consistency: constant Severity: moderate Exacerbating factors: none Relieving factors: none Associated symptoms: myalgias and weakness Related Data Home Medications Medication Instructions Recorded Confirmed amlodipine 10 mg tablet 10 mg PO DAILY 10/18/21 07/14/22 diclofenac sodium 1 % topical gel g topical BID 10/18/21 07/14/22 celecoxib 100 mg capsule 100 mg PO DAILY 07/01/22 07/14/22 metformin 500 mg tablet 500 mg PO BID 07/01/22 07/14/22 Previous Rx's Medication Instructions Recorded ondansetron 4 mg disintegrating 4 mg PO Q8H PRN nausea and 09/30/22 tablet vomiting #5 tabs Allergies Allergy/AdvReac Type Severity Reaction Status Date / Time No Known Allergies Allergy Verified 08/19/22 15:05 Review of Systems Review of Systems: Yes all other systems are reviewed and are negative PMFSH Past Medical History Source: old records reviewed Medical History (Updated 09/30/22 @ 09:07 by STEFANIE Agudelo) Abdominal pain Continuous LLQ abdominal pain History of prediabetes HTN (hypertension) Surgical History S/P laparoscopic hernia repair Family History Family History Maternal Aunt Breast cancer Social History Social History Alcohol intake: current Alcohol intake frequency: a few times a week Patient Tobacco Use Status: Never used Tobacco Smoked in Last 30 Days: No Use of substances other than those prescribed or required for medical reasons: No Advance Directives: No Advance Directives Information Provided: Yes Physical Exam Vital Signs: Vital Signs: Last Vital Signs Temp 98.6 F 09/30/22 07:03 Pulse 94 09/30/22 07:03 Resp 16 09/30/22 07:03 BP 144/92 H 09/30/22 07:03 Pulse Ox 97 09/30/22 07:03 O2 Del Method Room Air 09/30/22 07:03 BMI result Body Mass Index 30.9 VS within normal limits Appearance: Alert. Oriented X3. No acute distress. Head: normocephalic, atraumatic. Eyes: Pupils equal, round and reactive to light. ENT: Pharynx normal. No tonsillar swelling or exudate. Neck: Normal inspection. Neck supple. CVS: Normal heart rate and rhythm. Pulses normal. Respiratory: No respiratory distress. Breath sounds normal. Abdomen: Obese. Soft and mildly TTP. Normoactive BS x4 Skin: Skin warm and dry. Normal skin color. Normal skin turgor. No rashes. Extremities: No lower extremity edema. No joint swelling. Neuro/psych: Oriented X 3. No motor deficit. No sensory deficit. CN II-XII intact. Normal speech and cognition. Medications Administered Discontinued Medications Generic Name Dose Route Start Last Admin Trade Name Freq PRN Reason Stop Dose Admin Sodium Chloride 1,000 mls @ 999 mls/hr 09/30/22 07:15 09/30/22 08:53 Ns IVCONT 09/30/22 08:15 Infused .Q1H1M SCARLETT Infusion Ondansetron HCl 4 mg 09/30/22 07:38 09/30/22 08:25 Ondansetron Hcl 4 Mg/2 Ml Vial IVPUSH 09/30/22 07:39 4 mg ONCE ONE Administration Medical Decision Making Medical Decision Making MDM Narrative: 52 year old male with a history significant for HTN, prediabetes, umbilical & ventral hernia, and diastasis recti 1 mo s/p laparoscopic hernia repair who presents today with diarrhea, vomiting, and periumbilical abdominal pain for the past 24 hours. Vital signs reviewed and within normal limits. Consider bacterial gastroenteritis, viral gastroenteritis, COVID, doubt appendicitis, cholecystitis. Not likely SBO. His lab workup today was unremarkable. Abd exam benign. Imaging deferred. He was tolerating PO fluids and crackers. Clinicial presentation most c/w acute gastroenteritis. comfortable with d/c home w/ supportive care. rx for zofran sen t. stable for d/c, patient agrees w/ plan. Differential Diagnosis Differential Diagnoses: The differential diagnosis associated with the p resentation includes Consider bacterial gastroenteritis, viral gastroenteritis, COVID, doubt appendicitis, cholecystitis. Not likely SBO. Lab Data MDM Lab Attestation statement: I reviewed the patient's lab results. no leukocytosis, or evidence of severe dehydration. 09/30/22 07:31 09/30/22 07:31 Labs: Lab Results 09/30/22 09/30/22 09/30/22 Range/Units 07:29 07:31 07:31 WBC 6.5 (4.8-10.8) X10*3/uL RBC 5.00 (4.60-5.80) X10*6/uL Hgb 15.1 (14.0-18.0) g/dl Hct 44.0 (42.0-52.0) % MCV 88.0 (80.0-98.0) fL MCH 30.2 (27.0-33.0) pg MCHC 34.3 (31.0-36.0) g/dl RDW 12.8 (11.0-16.0) % Plt Count 286 (160-400) X10*3/uL MPV 9.3 L (9.4-12.4) fL Immature Gran % (Auto) 0.2 (0.0-0.4) % Neut % (Auto) 76.0 H (45-73) % Lymph % (Auto) 14.1 L (20-40) % Jennings % (Auto) 7.8 (2-11) % Eos % (Auto) 1.4 (0-4) % Baso % (Auto) 0.5 (0-2) % Lymph # (Auto) 0.9 L (1.2-4.9) X10*3/uL Jennings # (Auto) 0.5 (0.1-1.2) X10*3/uL Eos # (Auto) 0.1 (0.0-0.4) X10*3/uL Baso # (Auto) 0.0 (0.0-0.2) X10*3/uL Abs Immat Gran (auto) 0.01 (0.00-0.03) X10*3/uL Absolute Neuts (auto) 5.0 (2.0-8.3) x10*3/uL Absolute Nucleated RBC 0.000 (0.0-0.012) X10*3/uL Nucleated RBC % (auto) 0.0 (0.0-0.2) /100WBC Sodium 139 (135-145) mmol/L Potassium 4.1 (3.3-5.1) mmol/L Chloride 105 (96-108) mmol/L Carbon Dioxide 24 (22-29) mmol/L Anion Gap 14 (12-20) BUN 17 H (9-16) mg/dL Creatinine 1.16 (0.5-1.4) mg/dL Estim Creat Clear Calc 84.7 Estimated GFR > 60 Random Glucose 109 (60-115) mg/dL Calcium 9.4 (8.4-10.2) mg/dL Magnesium 1.9 (1.6-2.6) mg/dL Total Bilirubin 0.8 (0.0-1.0) mg/dL Direct Bilirubin 0.2 (0.0-0.5) mg/dL AST 22 (5-37) U/L ALT 33 (0-40) U/L Alkaline Phosphatase 60 (39-117) U/L Total Protein 7.6 (6.5-8.0) g/dL Albumin 4.3 (3.5-5.0) g/dL Lipase 36 (8-78) U/L Urine Color Urine Appearance Urine pH (5.0-9.0) Ur Specific [place] (1.005-1.025) Urine Protein (Neg-Trace) mg/dL Urine Glucose (UA) (Negative) mg/dL Urine Ketones (Negative) mg/dL Urine Blood (Negative) Urine Nitrite (Negative) Ur Leukocyte Esterase (Negative) COVID-19 (YESSENIA) Negative (Negative) COVID-19 Clin Com See Note 09/30/22 Range/Units 08:28 WBC (4.8-10.8) X10*3/uL RBC (4.60-5.80) X10*6/uL Hgb (14.0-18.0) g/dl Hct (42.0-52.0) % MCV (80.0-98.0) fL MCH (27.0-33.0) pg MCHC (31.0-36.0) g/dl RDW (11.0-16.0) % Plt Count (160-400) X10*3/uL MPV (9.4-12.4) fL Immature Gran % (Auto) (0.0-0.4) % Neut % (Auto) (45-73) % Lymph % (Auto) (20-40) % Jennings % (Auto) (2-11) % Eos % (Auto) (0-4) % Baso % (Auto) (0-2) % Lymph # (Auto) (1.2-4.9) X10*3/uL Jennings # (Auto) (0.1-1.2) X10*3/uL Eos # (Auto) (0.0-0.4) X10*3/uL Baso # (Auto) (0.0-0.2) X10*3/uL Abs Immat Gran (auto) (0.00-0.03) X10*3/uL Absolute Neuts (auto) (2.0-8.3) x10*3/uL Absolute Nucleated RBC (0.0-0.012) X10*3/uL Nucleated RBC % (auto) (0.0-0.2) /100WBC Sodium (135-145) mmol/L Potassium (3.3-5.1) mmol/L Chloride (96-108) mmol/L Carbon Dioxide (22-29) mmol/L Anion Gap (12-20) BUN (9-16) mg/dL Creatinine (0.5-1.4) mg/dL Estim Creat Clear Calc Estimated GFR Random Glucose (60-115) mg/dL Calcium (8.4-10.2) mg/dL Magnesium (1.6-2.6) mg/dL Total Bilirubin (0.0-1.0) mg/dL Direct Bilirubin (0.0-0.5) mg/dL AST (5-37) U/L ALT (0-40) U/L Alkaline Phosphatase (39-117) U/L Total Protein (6.5-8.0) g/dL Albumin (3.5-5.0) g/dL Lipase (8-78) U/L Urine Color Yellow Urine Appearance Clear Urine pH 7.0 (5.0-9.0) Ur Specific [place] 1.020 (1.005-1.025) Urine Protein Negative (Neg-Trace) mg/dL Urine Glucose (UA) Negative (Negative) mg/dL Urine Ketones Negative (Negative) mg/dL Urine Blood Negative (Negative) Urine Nitrite Negative (Negative) Ur Leukocyte Esterase Negative (Negative) COVID-19 (YESSENIA) (Negative) COVID-19 Clin Com External Record Review External record reviewed: Outpatient record and Prior outpatient labs Prescription Management I considered prescription management with: Other (antiemetics) Chronic Conditions Patient?s care impacted by: Hypertension Critical Care Time Critical Care Time Critical Care Time: No Discharge Plan Discharge Clinical Impression: Gastroenteritis Patient Disposition: Home, Self-Care Instructions: Gastroenteritis (DC) Additional Instructions: You lab workup today was unremarkable. Your urine test was negative for infection. You most likely have a viral GI bug also known as gastroenteritis. Treatment is supportive care, symptoms usually resolve on their own in 48-72 hours. Recommend rest and plenty of oral hydration. Stick to a bland diet like soup and toast while you are not feeling well. Take the prescribed medication as needed for nausea. Recommend over the counter Pepto Bismol or Imodium for upset stomach and diarrhea. Follow up with your doctor as needed. If you develop new or worsening symptoms call 911 or come back to the ER for further evaluation. Prescriptions: New ondansetron 4 mg tablet,disintegrating 4 mg PO Q8H PRN (Reason: nausea and vomiting) Qty: 5 0RF No Action celecoxib 100 mg capsule 100 mg PO DAILY metformin 500 mg tablet 500 mg PO BID amlodipine 10 mg tablet 10 mg PO DAILY diclofenac sodium 1 % gel topical BID Referrals: Name,MD Brad [Primary Care Provider] - (f/u gastroenteritis)
[2022-09-30] MEDS: 0.9 % Sodium Chloride 1,000 ML 999 ML IVCONT (07:36)
[2022-09-30 07:47] LABS: MANUAL DIFF FLAG NO
[2022-09-30 07:50] LABS: Basophils Percent Auto 0.5 % (0-2); Eosinophils Absolute Auto 0.1 X10*3/uL (0.0-0.4); Eosinophils Percent Auto 1.4 % (0-4); Hemoglobin 15.1 g/dl (14.0-18.0); Imm Gran Abs Auto 0.01 X10*3/uL (0.00-0.03); Imm Gran Pct Auto 0.2 % (0.0-0.4); Lymphocytes Absolute Auto 0.9 X10*3/uL (1.2-4.9); Lymphocytes Percent Auto 14.1 % (20-40); Mean Corpuscular HGB Conc 34.3 g/dl (31.0-36.0); Mean Corpuscular Hemoglobin 30.2 pg (27.0-33.0); Mean Platelet Volume 9.3 fL (9.4-12.4); Monocytes Absolute Auto 0.5 X10*3/uL (0.1-1.2); Monocytes Percent Auto 7.8 % (2-11); Platelet Count 286 X10*3/uL (160-400); Red Cell Distribution Width 12.8 % (11.0-16.0); White Blood Count 6.5 X10*3/uL (4.8-10.8)
[2022-09-30 08:08] LABS: COVID-19 Test Negative (Negative); IDNOW Serial# BCCEAD1C
[2022-09-30 08:23] LABS: Alanine Aminotransferase 33 U/L (0-40); Albumin Level 4.3 g/dL (3.5-5.0); Alkaline Phosphatase 60 U/L (39-117); Anion Gap 14 (12-20); Aspartate Amino Transferase 22 U/L (5-37); Bilirubin Direct 0.2 mg/dL (0.0-0.5); Bilirubin Total 0.8 mg/dL (0.0-1.0); Blood Urea Nitrogen 17 mg/dL (9-16); Calcium 9.4 mg/dL (8.4-10.2); Carbon Dioxide 24 mmol/L (22-29); Chloride 105 mmol/L (96-108); Creatinine Clr Calc Pharmacy 84.7; Estimated Glomerular Filt Rate > 60; Glucose Random 109 mg/dL (60-115); Lipase 36 U/L (8-78); Magnesium 1.9 mg/dL (1.6-2.6); Potassium 4.1 mmol/L (3.3-5.1); Sodium 139 mmol/L (135-145); Total Protein 7.6 g/dL (6.5-8.0)
[2022-09-30] MEDS: ondansetron HCL 4 MG/2 ML VIAL IVPUSH (08:25)
[2022-09-30 08:36] LABS: Appearance Urine Clear; Color Urine Yellow; Glucose Urine UA Negative (Negative); Leukocyte Esterase Urine Negative (Negative); Nitrite Urine Negative (Negative); Urine Blood Negative (Negative); Urine Ketones Negative (Negative); Urine Protein Negative (Neg-Trace)
== END 2022-09-30 09:35 | disposition home or self-care (01) ==
PROVIDERS: Physician Assistant; Emergency Provider Emergency Medicine; PCP Internal Medicine Geriatric Medicine
DX: K52.9 Noninfective gastroenteritis and colitis, unspecified (principal); Z20.822 Contact with and (suspected) exposure to COVID-19; I10 Essential (primary) hypertension
CPT/HCPCS: 36415; 80048; 80076; 81003; 83690; 83735; 85025; 87635; 96361; 96374; 99284; J2405

== ENCOUNTER 2023-02-18 08:19 | Outpatient (REF) | payer OTHER, SELFPAY ==
[2023-02-18 09:25] LABS: Estimated Average Glucose 111 mg/dL; Hemoglobin A1c % 5.5 % (<6.0)
[2023-02-18 10:02] LABS: Alanine Aminotransferase 26 U/L (0-40); Albumin Level 4.5 g/dL (3.5-5.0); Alkaline Phosphatase 56 U/L (39-117); Anion Gap 14 (12-20); Aspartate Amino Transferase 22 U/L (5-37); Bilirubin Total 0.6 mg/dL (0.0-1.0); Blood Urea Nitrogen 17 mg/dL (9-16); Calcium 10.2 mg/dL (8.4-10.2); Carbon Dioxide 23 mmol/L (22-29); Chloride 107 mmol/L (96-108); Cholesterol 128 mg/dL (<200); Estimated Glomerular Filt Rate > 60; Glucose Random 100 mg/dL (60-115); HDL Cholesterol 38 mg/dL (>40); LDL Cholesterol Calculated 80 mg/dL (<100); Potassium 4.3 mmol/L (3.3-5.1); Sodium 140 mmol/L (135-145); Triglycerides 53 mg/dL (<150)
== END 2023-02-18 08:20 | disposition home or self-care (01) ==
LOC: HO.LAB 08:19
PROVIDERS: PCP Internal Medicine Geriatric Medicine; Visit Provider Internal Medicine Geriatric Medicine
DX: I10 Essential (primary) hypertension (principal); E78.00 Pure hypercholesterolemia, unspecified; R73.03 Prediabetes; L90.5 Scar conditions and fibrosis of skin
CPT/HCPCS: 36415; 80053; 80061; 83036

== ENCOUNTER → 2023-04-06 12:37 | Outpatient (REF) | payer OTHER, SELFPAY ==
--- NOTE | 2023-04-06 12:41 | CA_ITS ---
Transthoracic Echocardiogram Patient (Last, First, Middle): Marek Watts A Gender: Male Date of : 1970 Age: 53 Procedure Date: 04/06/2023 Procedure Type: Transthoracic Echocardiogram Location: OP Height: 175.26 cm Weight: 86.18 kg BSA: 2.02 m2 Heart Rate: 81 bpm BP: 122 / 84 mmHg Building Rigger: GARY/SISI Referring MD: Brad Ward MD Symptoms: R01.1 SYSTOLIC MURMUR Study Quality: Adequate ECG Rhythm: Sinus Conclusions: - The left ventricular systolic function is normal. The calculated ejection fraction is 64% by biplane method. - No obvious valvular pathology seen on this study. Findings Left Ventricle Normal left ventricular cavity size. There is normal left ventricular wall thickness. The left ventricular systolic function is normal. The calculated ejection fraction is 64% by biplane method. There is no evidence of regional wall motion abnormalities. Diastolic function is normal for age. LV peak GLS -19.2%. Right Ventricle Normal right ventricular cavity size and systolic function. Atria Both atria are normal in size. Aortic Valve There is a normal trileaflet aortic valve. There is no aortic valve stenosis. There is no aortic valve regurgitation. Mitral Valve The mitral valve appears normal. There is trace mitral valve regurgitation. There is no mitral valve stenosis. Pulmonic Valve The pulmonic valve is likely normal. Tricuspid Valve Normal tricuspid valve structure. There is trace tricuspid valve regurgitation. There is no evidence of pulmonary hypertension. Great Vessels The asc aorta is normal in size. Venous The inferior vena cava is normal in size and collapses greater than 50% with inspiration. Pericardium/Pleural There is no evidence of pericardial effusion. Prior Study Comparison No prior study available for comparison. Recommendations, Care & Conclusions No obvious valvular pathology seen on this study. Measurements 2D Linear Measurements IVSd: 0.80 0.6-0.9/0.6-1.0 cm LVIDd: 5.65 3.9-5.3/4.2-5.9 cm LVIDd Index: 2.80 2.4-3.2/2.2-3.1 cm/m2 LVIDs: 4.20 2.0-3.6 cm LVPWd: 1.01 0.7-1.1 cm LA Diam: 4.00 2.7-3.8/3.0-4.0 cm LAIDs Index: 1.98 1.5-2.3 cm/m2 LV Mass: 244.19 67-162/88-224 g LV Mass Index: 120.89 43-95/49-115 g/m2 LVOT Diam: 2.00 3.0+(-)1.3 cm 2D Systolic Function EF 4C: 61.50 >55% EF 2C: 65.80 >55% EF BiP: 64.30 >55% Mitral Valve MV Pk E: 0.75 MV PK A: 1.03 MV Decel Time: 235.00 E/A: 0.70 E'Lateral: 11.90 E'Medial: 8.81 E/E' Med: 8.50 E/E' Lat: 6.30 PHT: 69.00 MVA PHT: 3.19 Decel [place]: 3.19 Aortic Valve AoV Pk Sohail: 1.74 AoV Mn S[place]ail: 1.25 AoV VTI: 0.34 AoV Pk Grad: 12.00 Aov Mn Grad: 7.00 BEN Cont.VTI: 2.09 LVOT LVOT Pk S[place]ail: 1.10 LVOT Mn [place]: 0.77 LVOT VTI: 0.23 LVOT Pk Grad: 5.00 LVOT Mn Grad: 3.00 LVOT Diam: 2.00 LVOT Area: 3.14 Diastolic Function MV Pk E: 0.75 MV Pk A: 1.03 E/A: 0.70 E'Medial: 8.81 E/E' Med: 8.50 E' Laterial: 11.90 E/E' Lat: 6.30 Right Ventricle TAPSE (mm): 26.20 TVS' Sohail: 13.20 Tricuspid Valve TR Pk Sohail: 2.13 TR Pk Grad: 18.00 RA Press: 3.00 RVSP: 21.00 Great Vessels Aorta Sinus of Valsalva: 3.00 2.0-3.5 cm Ao Asc: 3.60 2.1-3.4 cm Ao Arch: 2.80 Pulmonary Valve PV Pk Sohail: 1.25 Peak PV Grad: 6.00 Updated in Other Vendor System with Status of Final Andrzej Champion MD electronically signed on 04/08/2023 1:47:42 PM with status of Final
== END ==
LOC: HO.CARD 12:37
PROVIDERS: PCP Internal Medicine Geriatric Medicine; Visit Provider Internal Medicine Geriatric Medicine
DX: R01.1 Cardiac murmur, unspecified (principal)
CPT/HCPCS: 93306; 93356

== ENCOUNTER → 2023-04-06 12:41 | Outpatient (BNV) | payer OTHER, SELFPAY | PROVIDERS: PCP Internal Medicine Geriatric Medicine; Visit Provider Internal Medicine | DX: R01.1 Cardiac murmur, unspecified (principal) | CPT/HCPCS: 93306 ==

== ENCOUNTER 2023-05-31 16:26 | Emergency (ER) | payer OTHER, SELFPAY ==
--- NOTE | ~2023-05-31 | XR_ITS ---
EXAMINATION: XR KNEE, LEFT CLINICAL INFORMATION: Pain COMPARISON: Previous x-ray October 2019 TECHNIQUE: Four views of the left knee. FINDINGS: No fracture or joint effusion. Alignment is anatomic. Joint spaces are maintained. No abnormal soft tissue calcification. XR/XR knee LT 4V IMPRESSION: Normal left knee.
[2023-05-31 17:18] VITALS: BP 122/74; PULSE 81; RESP 16; TEMP 36.8; O2SAT 98; BMI 26.6
--- NOTE | 2023-05-31 17:31 | ED_ITS ---
HPI - General Adult General Chief complaint: Extremity Injury, Lower Stated complaint: Left knee pain Time Seen by Provider: 05/31/23 17:59 Source: patient Mode of arrival: ambulatory Limitations: no limitations History of Present Illness HPI narrative: Patient is a 53 yr old male with a past medical history of a left ankle fracture, HTN, HLD presenting with left knee pain for 2 years. He states that he presented to the ER today because the pain is worse than it normally is. Pain is sharp to the lower left knee and is 6/10. Denies pain in the ipsilateral hip, ankle or foot, LE numbness/tingling. Patient denies any trauma to the knee when the pain started. Patient denies pain medication improve his symptoms, except for a brace he used to have this his accidentally got ride of. Patient states the pain is worse with movement and better with rest. He states he does a lot of walking for his job, upwards of 10 hours per day. 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 Related Data Home Medications Medication Instructions Recorded Confirmed amlodipine 10 mg tablet 10 mg PO DAILY 10/18/21 07/14/22 diclofenac sodium 1 % topical gel g topical BID 10/18/21 07/14/22 celecoxib 100 mg capsule 100 mg PO DAILY 07/01/22 07/14/22 metformin 500 mg tablet 500 mg PO BID 07/01/22 07/14/22 Previous Rx's Medication Instructions Recorded ondansetron 4 mg disintegrating 4 mg PO Q8H PRN nausea and 09/30/22 tablet vomiting #5 tabs naproxen 500 mg tablet 500 mg PO BID #14 tabs 05/31/23 prednisone 20 mg tablet 40 mg (2 x 20 mg) PO DAILY 5 days 05/31/23 #10 tabs Allergies Allergy/AdvReac Type Severity Reaction Status Date / Time No Known Allergies Allergy Verified 08/19/22 15:05 Review of Systems Review of Systems: Constitutional : No Weight loss, No Fever, No Chills, No Fatigue, No Malaise ENT/Mouth : No sore throat, No Rhinorrhea Eyes: No Eye Pain, No Swelling, No Redness Cardiovascular : No Chest Pain, No SOB, No Dyspnea on Exertion, No Orthopnea, No Edema, No Palpitations Respiratory : No Cough, No Sputum, No Wheezing Gastrointestinal : No Nausea, No Vomiting, No Diarrhea, No Constipation, No abdominal Pain, No Hematochezia, No Melena Genitourinary : No Dysuria, No Urinary Frequency, No Hematuria, Musculoskeletal : + left knee pain. No joint pain, No Myalgias, No Joint Swel ling Skin : No Skin Lesions, No rash Neuro : No Weakness, No Numbness, No Dizziness, No Headache Psych : No Anxiety/Panic, No Depression Heme/Lymph: No Bruising, No Bleeding,No Lymphadenopathy Endocrine : No Polyuria, No Polydipsia All other systems reviewed and are negative Yes all other systems are reviewed and are negative [facility] Past Medical History Attestation statement: The following information was validated with the patient. Source: old records reviewed and nursing notes reviewed Medical History Continuous LLQ abdominal pain HTN (hypertension) History of prediabetes Abdominal pain Surgical History S/P laparoscopic hernia repair Family History Family History Maternal Aunt Breast cancer Social History Social History Alcohol intake: current Alcohol intake frequency: a few times a week Patient Tobacco Use Status: Never used Tobacco Advance Directives: No Advance Directives Information Provided: No Physical Exam ED Vital Signs: Vital Signs - 24 hr 05/31/23 17:18 05/31/23 19:31 Temperature 98.3 F 98.1 F Pulse Rate 81 88 Respiratory Rate 16 18 Blood Pressure 122/74 128/81 Pulse Oximetry 98 98 Oxygen Delivery Method Room Air Room Air BMI result Body Mass Index 26.6 vss WNL Appearance: Alert.? Oriented X3.? No acute distress.? Head: Normocephalic, atraumatic, no step-offs or deformities Eyes: Pupils equal, round and reactive to light.? CVS: Normal heart rate and rhythm.? Pulses normal.? Respiratory: No respiratory distress.? Breath sounds normal.? Abdomen: Soft and nontender.? Skin: Skin warm and dry.? Normal skin color.? Normal skin turgor.? Extremities: + localized edema and tenderness to palpation of medial inferior left knee. Full ROM. No lower extremity edema.? No calf ttp. 5/5 strength to bilateral upper and lower extremities Back: No midline tenderness, no C-spine tenderness, full range of motion, no CVA tenderness bilaterally Neuro: Oriented X 3.? No motor deficit.? No sensory deficit. CN 2-12 intact Course Course Course Narrative: RME: 52-year-old male presents to ED for worsening left knee pain that has been chronic for the past 2 years. Patient denies any swelling or redness. Patient has multiple layers of clothes not able to examine knee. X-ray ordered. Patient to be evaluated in ED Reevaluation(s) Reevaluation #1: Xray benign. Patient refuses pain medications at this time. Reevaluation #2: I reviewed diagnosis and treatment plan with patient. Educated him to take prednisone, naproxen. I told him to stop celecoxib. Educated patient on diagnosis and treatment plan, answered all question, patient verbalizes understanding. At this time patient will be discharged home, advised to return with new or worsening symptoms. Educated on worrisome signs and symptoms and when to return. At this time I feel comfortable discharge home. Time: 18:33 Reevaluation #3: Jeff wrap given. Medical Decision Making Medical Decision Making [facility] Narrative: Patient is a 53 yr old male with a past medical history of a left ankle fracture, HTN, HLD presenting with left knee pain for 2 years. PE signifcant for tenderness to palpation and localized edema to the left medial inferior knee. Full ROM and 5/5 strength. Likely bursitis vs overuse injury vs osteoarthritis. Unlikely fracture due to lack of trauma and point tenderness. Unlikely joint effusion, ligamentous injury. Unlikely NV compromise, threat to limb. Unlikely gout, pseudogout, septic joint. Plan pain management, imaging ordered by triage. Differential Diagnosis Differential Diagnoses: The differential diagnosis associated with the presentation includes Likely overuse injury vs osteoarthritis. Unlikely fracture due to lack of trauma and point tenderness. Unlikely NV compromise, threat to limb. Unlikely gout, pseudogout, septic joint. Admission/Observation Consideration of admission/observation: Escalation of care including admission/observation considered Lab Data [facility] Lab Attestation statement: I reviewed the patient's lab results. Not necessary with patient presentation. Independent Interpretation I performed an independent interpretation of an: Plain X-Ray (FINDINGS: No fracture or joint effusion. Alignment is anatomic. Joint spaces are maintained. No abnormal soft tissue calcification. XR/XR knee LT 4V IMPRESSION: Normal left knee. ) Radiology Impression Discussion of test interpretation with radiology: I have reviewed the radiologist's reading. External Record Review External record reviewed: Inpatient record, Outpatient record, Prior outpatient labs, Prior outpatient radiology, Primary care record and Outside ED record Chronic Conditions Patient?s care impacted by: Hypertension Critical Care Time Critical Care Time Critical Care Time: No Discharge Plan Discharge Clinical Impression: Knee pain Qualifiers: Chronicity: chronic Laterality: left Qualified Code(s): M25.562 - Pain in left knee Patient Disposition: Home, Self-Care Instructions: Knee Pain (ED) Additional Instructions: Take your medications as prescribed. If you were prescribed antibiotics today, it is important that you take your medication to their entirety, do not skip any doses, do not finish them early. Follow-up with your primary care provider this week. Return to the emergency department with new or worsening symptoms. In case of emergency call 911 Toradol has been sent to your pharmacy, you tolerated this well in the department. Please take this as prescribed do not take this with ibuprofen, or other NSAIDs ( such as celecoxib) , do not mix this with alcohol. Side effects of this medication including increased risk for bleeding and possible kidney injury. [place] cristhian medicamentos seg?n lo recetado. Si hoy te recetaron antibi?ticos, es importante que tomes tu medicaci?n en hummel totalidad, no te saltes ninguna dosis, no las termines antes de tiempo. Travis un seguimiento con hummel proveedor de atenci?n primaria esta semana. Regrese al departamento de emergencias si los s?ntomas son nuevos o empeoran. En swetha de emergencia llame al 911. Toradol gutiérrez sido enviado a hummel farmacia, lo anum? marie en el departamento. [place] seg?n lo prescrito, no lo tome con ibuprofeno u otros RANJANA (romero celecoxib), no lo mezcle con alcohol. Los efectos secundarios de jesús medicamento incluyen un mayor riesgo de sangrado y posible lesi?n renal. FINDINGS: No fracture or joint effusion. Alignment is anatomic. Joint spaces are maintained. No abnormal soft tissue calcification. XR/XR knee LT 4V IMPRESSION: Normal left knee. Prescriptions: New prednisone 20 mg tablet 40 mg PO DAILY 5 Days Qty: 10 0RF naproxen 500 mg tablet 500 mg PO BID Qty: 14 0RF No Action ondansetron 4 mg tablet,disintegrating 4 mg PO Q8H PRN (Reason: nausea and vomiting) Qty: 5 0RF celecoxib 100 mg capsule 100 mg PO DAILY metformin 500 mg tablet 500 mg PO BID amlodipine 10 mg tablet 10 mg PO DAILY diclofenac sodium 1 % gel topical BID Referrals: [facility] [place] [facility] [Provider Group] Name,MD Brad [Primary Care Provider] - 2 days Stand Alone Forms: Work/School Release Interventions: ED Discharge Assessment Last Done: 05/31/23 19:38 Discharge Date/Time: 05/31/23 19:40
[2023-05-31 19:31] VITALS: BP 128/81; PULSE 88; RESP 18; TEMP 36.7; O2SAT 98
== END 2023-05-31 19:40 | disposition home or self-care (01) ==
PROVIDERS: Emergency Provider Emergency Medicine; PCP Internal Medicine Geriatric Medicine
DX: M25.562 Pain in left knee (principal)
CPT/HCPCS: 73564; 99283

== ENCOUNTER 2023-06-26 14:38 | Outpatient (REF) | payer OTHER, SELFPAY ==
--- NOTE | ~2023-06-26 | XR_ITS ---
EXAMINATION: XR KNEE AP STANDING, BILATERAL XR KNEE [place], LEFT CLINICAL INFORMATION: Pain in right knee. Pain in left knee. COMPARISON: Left knee of 05/31/2023. TECHNIQUE: AP standing view of the bilateral knees. [place] view of the left knee. FINDINGS: LEFT KNEE: Moderate medial compartment joint space narrowing with small medial marginal osteophytes. Small posterior patellar spurs. AP STANDING VIEW OF THE RIGHT KNEE: Mild medial marginal osteophytes. Medial and lateral compartments are maintained. XR/XR knee LT 1V IMPRESSION: 1. Moderate degenerative changes left knee. 2. Mild degenerative changes right knee.
--- NOTE | ~2023-06-26 | XR_ITS ---
EXAMINATION: XR KNEE AP STANDING, BILATERAL XR KNEE [place], LEFT CLINICAL INFORMATION: Pain in right knee. Pain in left knee. COMPARISON: Left knee of 05/31/2023. TECHNIQUE: AP standing view of the bilateral knees. [place] view of the left knee. FINDINGS: LEFT KNEE: Moderate medial compartment joint space narrowing with small medial marginal osteophytes. Small posterior patellar spurs. AP STANDING VIEW OF THE RIGHT KNEE: Mild medial marginal osteophytes. Medial and lateral compartments are maintained. XR/XR knee standing BI IMPRESSION: 1. Moderate degenerative changes left knee. 2. Mild degenerative changes right knee.
== END 2023-06-26 14:39 | disposition home or self-care (01) ==
LOC: HO.HOSX 14:38
PROVIDERS: Visit Provider Physician Assistant
DX: M17.12 Unilateral primary osteoarthritis, left knee (principal); M25.561 Pain in right knee
CPT/HCPCS: 73560; 73565; 99202

== ENCOUNTER 2023-06-26 15:14 | Outpatient (AMB) | payer OTHER, SELFPAY ==
--- NOTE | 2023-06-26 15:25 | MHC.OFFVIS ---
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 Patient reports knee pain over a year ago that seemed to improve how , topical naproxen. at work his pain is owrse due to prolong standing and walking. loacted medial aspect of knee. No previous tx. Denies injury. 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 He states he has improvement in his pain however he experiences pain at the medial aspect of his knee which is aggravated at work due to prolonged standing and walking. He finds relief with naproxen. He also applies pain cream and bandage at night with benefits. He denies any previous injury and has not had any treatment in the past. 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 Review of Systems Const All systems reviewed & are unremarkable except as noted in HPI and below Physical Exam Vital Signs: BMI result Body Mass Index 26.6 Const General: cooperative, healthy appearing, comfortable, no acute distress, well developed and alert Orientation/consciousness: patient oriented x3 HEENT Head: Yes normal to inspection, Yes normocephalic and Yes atraumatic Eyes General: appearance normal, both eyes and all related structures Resp Effort & Inspection: normal respiratory effort and able to speak in complete sentences Cardio Rate: regular rate Peripheral pulses: Peripheral pulses 2+ throughout GI Palpation (GI): Soft to palpation Skin Lesions: no lesions Rashes: no rashes Neuro General: patient oriented x3 Extrem Other: Left knee: Skin intact, no erythema or joint effusion. Tenderness along the medial joint line. Full ROM with crepitus. Negative Eric?s. No ligamentous laxity. NVI. Results Reviewed Results Reviewed: Xrays were obtained in the office today and personally reviewed by me of the left knee show mild oa with pf oa Assessment & Plan Assessment & Plan (1) Osteoarthritis of left knee: Code(s): M17.12 - Unilateral primary osteoarthritis, left knee Qualifiers: Osteoarthritis type: primary Qualified Code(s): M17.12 - Unilateral primary osteoarthritis, left knee Plan We discussed options which include PT, NSAIDs and injections. The patient will defer on the injection today and proceed with PT and NSAIDs. He was also fit for a Genumed knee brace in the office today. If symptoms persist, the patient will contact me for an injection, otherwise, PRN. Orders: Orders XR knee standing BI Today M25.561 - Pain in right knee, M25.562 - Pain in left knee XR knee LT 1V Today M25.562 - Pain in left knee Medications: Refilled naproxen 500 mg PO BID 60 tabs 3RF Patient Instructions: Scribed for Shi Hawkins PA-C, by Yonathan Maciel medical claims representative, on 06/26/2023 at 3:15 PM EST. IShi PA-C, have personally reviewed and agree with the information entered by the scribe. Coding Level of Care Code New Pt Level 3 (01728) Diagnoses Primary osteoarthritis of left knee M17.12 Osteoarthritis type: primary
[2023-06-26 15:32] VITALS: BMI 26.6
== END 2023-06-26 15:56 | disposition home or self-care (01) ==
PROVIDERS: PCP Internal Medicine Geriatric Medicine; Visit Provider Physician Assistant
DX: M17.12 Unilateral primary osteoarthritis, left knee (principal)
CPT/HCPCS: 99203

== ENCOUNTER 2023-06-29 19:46 | Emergency (ER) | payer OTHER, SELFPAY ==
[2023-06-29 20:09] VITALS: BP 130/86; PULSE 98; RESP 19; TEMP 36.6; O2SAT 96; BMI 33.7
--- NOTE | 2023-06-29 20:11 | ED_ITS ---
HPI - Allergic Reaction General Chief complaint: Allergic Reaction Stated complaint: rash all over torso Time Seen by Provider: 06/29/23 21:47 Source: patient Mode of arrival: ambulatory Limitations: no limitations History of Present Illness HPI narrative: Patient is a 53-year-old male presents emergency department for evaluation of a pruritic rash that started after eating a seafood boil. Reports rash was to the trunk and the extremities began approximately 30 minutes after. He does admit that he has had seafood/shellfish in the past without any issue. He denied any headache, vision changes, chest pain, shortness of breath, difficulty breathing, nausea, vomiting, abdominal pain. Denies any recent/new medications, topical applications or environmental exposures Related Data Home Medications Medication Instructions Recorded Confirmed amlodipine 10 mg tablet 10 mg PO DAILY 10/18/21 07/14/22 diclofenac sodium 1 % topical gel g topical BID 10/18/21 07/14/22 celecoxib 100 mg capsule 100 mg PO DAILY 07/01/22 07/14/22 metformin 500 mg tablet 500 mg PO BID 07/01/22 07/14/22 atorvastatin 20 mg tablet 20 mg PO QAM 06/26/23 Previous Rx's Medication Instructions Recorded ondansetron 4 mg disintegrating 4 mg PO Q8H PRN nausea and 09/30/22 tablet vomiting #5 tabs prednisone 20 mg tablet 40 mg (2 x 20 mg) PO DAILY 5 days 05/31/23 #10 tabs naproxen 500 mg tablet 500 mg PO BID #60 tabs 06/26/23 levocetirizine 5 mg tablet 5 mg PO DAILY #10 tabs 06/29/23 prednisone 20 mg tablet 40 mg (2 x 20 mg) PO DAILY 5 days 06/29/23 #10 tabs Allergies Allergy/AdvReac Type Severity Reaction Status Date / Time No Known Allergies Allergy Verified 06/26/23 15:40 Review of Systems Review of Systems: Yes all other systems are reviewed and are negative PMFSH Past Medical History Attestation statement: The following information was validated with the patient. Source: old records reviewed Medical History Continuous LLQ abdominal pain HTN (hypertension) History of prediabetes Abdominal pain Surgical History S/P laparoscopic hernia repair Family History Family History Maternal Aunt Breast cancer Social History Social History (Updated 06/26/23 @ 15:29 by Luzma Griffith [facility]) Alcohol intake: current Alcohol intake frequency: a few times a week Patient Tobacco Use Status: Never used Tobacco Smoked in Last 30 Days: No Use of substances other than those prescribed or required for medical reasons: No Advance Directives: No Advance Directives Information Provided: No Current occupational status: employed 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 No acute dis tress.?Normal affect. Eyes: Pupils equal, round and reactive to light.? ENT: Pharynx normal.??Uvula midline. No trismus. No drooling. No angioedema Neck: Normal inspection.? Neck supple.??No cervical lymphadenopathy CVS: Heart sounds normal. Normal heart rate and rhythm.? Pulses normal.?? Respiratory: No respiratory distress.? Lung sounds clear to auscultation bilaterally?? Abdomen: Soft and non-tender. Normoactive bowel sounds. Skin: Skin warm and dry.? Normal skin color.? No rashes or lesions. No urticaria. Extremities: No lower extremity edema.? Neuro: Moves all extremities spontaneously. Sensation intact bilaterally. No focal neuro deficits. Ambulates with normal steady gait. Course Course Course Narrative: This is a rapid medical exam: Additional HPI, ROS, PE not included below will be deferred to primary provider. Patient is a 53-year-old male presenting to the emergency department with complaint of pruritic rash after eating a seafood boil prior to arrival. States he has never had any allergic reactions before. Food contained lobster, shrimp, sausage, potatoes, corn so patient is unsure what he is having a reaction to. He did not take any medications prior to arrival. Denies any abdominal pain, nausea, vomiting. Lungs clear, no angioedema, no uvula edema. Erythematous macular rash to trunk, extremities. Plan: medicated with benadryl, prednisone, famotidine in triage Medications Administered Discontinued Medications Generic Name Dose Route Start Last Admin Trade Name Lizz PRN Reason Stop Dose Admin Diphenhydramine HCl 50 mg 06/29/23 20:11 06/29/23 20:18 Diphenhydramine Hcl 25 Mg Capsule PO 06/29/23 20:12 50 mg ONCE ONE Administration Famotidine 20 mg 06/29/23 20:11 06/29/23 20:18 Famotidine 20 Mg Tablet PO 06/29/23 20:12 20 mg ONCE ONE Administration Prednisone 50 mg 06/29/23 20:13 06/29/23 20:18 Prednisone 10 Mg Tablet PO 06/29/23 20:14 50 mg ONCE ONE Administration Medical Decision Making Medical Decision Making [facility] Narrative: Patient is a 53-year-old male who presents to the emergency department for evaluation of a pruritic rash that began soon after eating a seafood boil without any known allergy history. Upon his arrival he was noted to have an erythematous macular rash of the trunk and extremities, he received oral Benadryl prednisone and famotidine prior to my assumption of care. At the time my evaluation the rash is completely resolved and he has no signs of angioedema. Discussed with patient concern allergic reaction advised to refrain from consuming foods he did tonight and have outpatient follow-up with PCP/allergy testing. Discharged prescription for prednisone/SDH histamine. Discussed strict return precautions. All questions answered. Stable for discharge. Differential Diagnosis Differential Diagnoses: The differential diagnosis associated with the presentation includes (Allergic reaction versus dermatitis, not consistent with angioedema/anaphylaxis) Admission/Observation Consideration of admission/observation: Escalation of care including admission/observation considered (See narrative above) Prescription Management I considered prescription management with: Other (See narrative above) Discharge Plan Discharge Clinical Impression: Allergic reaction Patient Disposition: Home, Self-Care Instructions: General Allergic Reaction (ED), Allergy Testing (ED) Additional Instructions: Take the medication sent to your pharmacy as prescribed. Contact your primary care provider tomorrow to arrange for a follow-up visit. You should have allergy testing done to determine whether you have any new allergens. Refrain from eating seafood/potato/sausage as this was the food that you consumed prior to the beginning of this rash. Return back to emergency department any new or worsening symptoms or concerns this includes but is not limited to shortness of breath, difficulty breathing, swelling of the face/lips, rash, chest pain. Prescriptions: New prednisone 20 mg tablet 40 mg PO DAILY 5 Days Qty: 10 0RF levocetirizine 5 mg tablet 5 mg PO DAILY Qty: 10 0RF No Action ondansetron 4 mg tablet,disintegrating 4 mg PO Q8H PRN (Reason: nausea and vomiting) Qty: 5 0RF prednisone 20 mg tablet 40 mg PO DAILY 5 Days Qty: 10 0RF celecoxib 100 mg capsule 100 mg PO DAILY metformin 500 mg tablet 500 mg PO BID amlodipine 10 mg tablet 10 mg PO DAILY diclofenac sodium 1 % gel topical BID atorvastatin 20 mg tablet 20 mg PO QAM naproxen 500 mg tablet 500 mg PO BID Qty: 60 3RF Referrals: Name,MD Brad [Primary Care Provider] -
[2023-06-29] MEDS: diphenhydrAMINE HCL 25 MG CAPSULE 50 MG PO (20:18)
[2023-06-29] MEDS: predniSONE 10 MG TABLET 50 MG PO (20:18)
[2023-06-29] MEDS: Famotidine 20 MG TABLET PO (20:18)
--- NOTE | 2023-06-29 21:45 | PC.NURSE ---
assumed care of pt at 2139, pt reports symptoms improved w medications, denies any itching/rash at this time.
[2023-06-29 21:56] VITALS: BP 124/87; PULSE 82; RESP 18; TEMP 36.7; O2SAT 98
== END 2023-06-29 23:23 | disposition home or self-care (01) ==
PROVIDERS: Emergency Provider Student in an Organized Health Care Education/Training Program; PCP Internal Medicine Geriatric Medicine
DX: L50.0 Allergic urticaria (principal)
CPT/HCPCS: 99283; 99284

== ENCOUNTER 2023-08-31 12:31 | Emergency (ER) | payer OTHER, SELFPAY ==
[2023-08-31 13:04] VITALS: BP 126/81; PULSE 77; RESP 18; TEMP 36.6; O2SAT 96; BMI 32.3
--- NOTE | 2023-08-31 13:06 | ED.GENADULT ---
HPI - General Adult General Chief complaint: General Medical Stated complaint: not feeling well headache Time Seen by Provider: 08/31/23 16:15 Source: patient Mode of arrival: ambulatory Limitations: no limitations History of Present Illness HPI narrative: Patient is a 53-year-old male with history of HTN currently on amlodipine presenting to the emergency department you reporting that yesterday he checked his blood pressure at home after getting home from work and taking a shower and noted it to be 200s over 100s. States he also had a headache yesterday. Today he took his blood pressure home and it was normal. He states his headache has since resolved. He denies any dizziness or lightheadedness, vision changes, chest pain or shortness of breath yesterday or today. Denies any weakness, numbness, or tingling to extremities. States that he is awaiting an appointment from his primary care provider. Currently denies headache, blurred or double vision, chest pain, shortness of breath or any other symptoms. MD complaint: high blood pressure Onset (ago): day(s) Associated symptoms: denies other symptoms Treatments prior to arrival: none Related Data Home Medications ?Medication ?Instructions ?Recorded ?Confirmed amlodipine 10 mg tablet 10 mg PO DAILY 10/18/21 07/14/22 diclofenac sodium 1 % topical gel g topical BID 10/18/21 07/14/22 celecoxib 100 mg capsule 100 mg PO DAILY 07/01/22 07/14/22 metformin 500 mg tablet 500 mg PO BID 07/01/22 07/14/22 atorvastatin 20 mg tablet 20 mg PO QAM 06/26/23 Previous Rx's ?Medication ?Instructions ?Recorded ondansetron 4 mg disintegrating 4 mg PO Q8H PRN nausea and 09/30/22 tablet vomiting #5 tabs prednisone 20 mg tablet 40 mg (2 x 20 mg) PO DAILY 5 days 05/31/23 #10 tabs naproxen 500 mg tablet 500 mg PO BID #60 tabs 06/26/23 levocetirizine 5 mg tablet 5 mg PO DAILY #10 tabs 06/29/23 prednisone 20 mg tablet 40 mg (2 x 20 mg) PO DAILY 5 days 06/29/23 #10 tabs Allergies Allergy/AdvReac Type Severity Reaction Status Date / Time No Known Allergies Allergy Verified 08/31/23 13:06 Review of Systems Review of Systems: As per HPI. Yes all other systems are reviewed and are negative Constitutional: Constitutional: Reports as per HPI [facility] Past Medical History Medical History Continuous LLQ abdominal pain HTN (hypertension) History of prediabetes Abdominal pain Surgical History S/P laparoscopic hernia repair Family History Family History Maternal Aunt Breast cancer Social History Social History (Updated 06/26/23 @ 15:29 by RAMESH Jones) Alcohol intake: current Alcohol intake frequency: a few times a week Patient Tobacco Use Status: Never used Tobacco Advance Directives: No Advance Directives Information Provided: No Current occupational status: employed 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 Blood pressure normal. Heart rate normal. Respiratory rate normal. Temperature normal. Oxygen saturation normal. Const General: cooperative, healthy appearing and no acute distress Orientation/consciousness: oriented to person, oriented to place, oriented to time and patient oriented x3 Limitations: no limitations HENGA Head: Yes normocephalic and Yes atraumatic Ears: external ears normal General nose exam: Normal external nose present Face and sinus: Yes face symmetric Mouth: oropharynx normal and moist mucous membranes Throat: Yes uvula midline Eyes Pupils: Equal, round and reactive pupils present Neck Neck: Yes normal visual inspection, Yes no meningeal signs and Yes supple Resp Effort & Inspection: normal respiratory effort and able to speak in complete sentences Auscultation: clear to auscultation bilaterally Cardio Rate: regular rate Rhythm: regular rhythm Heart sounds: S1 normal heart sound present and S2 normal heart sound present GI Palpation (GI): Soft to palpation and nontender Auscultation: normoactive bowel sounds General: Yes no CVA tenderness Back/Spine/Pelvis Back: no CVA tenderness Skin General skin exam: elasticity normal and turgor normal Neuro General: oriented to person, oriented to place, oriented to time, patient oriented x3, gait normal, tone normal, moves all extremities, Normal light touch and pain sensation, no meningeal signs, no focal motor deficits, CN's II-XI intact bilaterally and deep tendon reflexes 2+ bilaterally Cranial nerves: Yes Equal, round and reactive pupils present Cognition (Neuro): normal cognition Motor exam (neuro): 5/5 motor strength present throughout, Pronator motor function not present, Normal motor muscle tone present throughout and Motor abnormalities not present Sensory Exam: Normal double simultaneous stimulation for sensation Extrem General: Yes full ROM, Yes no pedal edema and Yes no calf tenderness Psych Mental Status: mental status grossly normal Affect: normal affect Thought process: Normal thought process present NIH Stroke Scale Internal: Initial- Upon Arrival Time: 16:39 Level of Consciousness: Alert Level of Consciousness Questions: Answers both questions correctly Level of Consciousness Commands: Performs both tasks correctly Best Gaze: Normal Visual: No visual loss Facial Palsy: Normal Motor Arm (Right): No drift Motor Arm (Left): No drift Motor Leg (Right): No drift Motor Leg (Left): No drift Limb Ataxia: Absent Sensory: Normal Best Language: No aphasia Dysarthia: Normal Extinction and Inattention: No abnormality Score: 0 Course Course Course Narrative: This is a rapid medical exam completed by Bin JOHNSON: Additional HPI, ROS, PE not included below will be deferred to primary provider. Generally feeling unwell and off with concerns for headache and high blood pressure. Reports that the takes medications at home for his blood pressure. BP here in the ED 126/81. Denies cough, fever, chills, shortness of breath, chest pain, abd pain, nausea, vomiting Medical Decision Making Medical Decision Making MDM Narrative: Patient is a 53-year-old male with history of HTN currently on amlodipine presenting to the emergency department you reporting that yesterday he checked his blood pressure at home after getting home from work and taking a shower and noted it to be 200s over 100s. On exam patient is awake, A+Ox3, VS WNL, afebrile, normal neurological exam without focal deficits, physical exam findings as above. Given reported symptoms and physical exam findings, initial differential includes hypertension, hypertensive urgency, viral illness. Viral serology negative. Blood pressure normal x2 in the emergency department. Patient currently asymptomatic. Do not suspect ICH or infarct. Discussed with patient that he should monitor his blood pressure daily at the same time while sitting down after resting for 5-10 minutes and keep track of the readings including date and time so that he can discuss his readings and trend them over time. Instructed patient to call his primary care office and let them know he came to the emergency department for his symptoms. Return precautions discussed at bedside. Patient verbalized understanding of and agreement with plan. Differential Diagnosis Differential Diagnoses: The differential diagnosis associated with the presentation includes As per [facility]. Lab Data [facility] Lab Attestation statement: I reviewed the patient's lab results. as per [facility] Labs: Lab Results 08/31/23 Range/Units 13:15 Influenza Type A (PCR) NEGATIVE (Negative) Influenza Type B (PCR) NEGATIVE (Negative) RSV RNA Qual (PCR) NEGATIVE (Negative) SARS-CoV-2 RNA (RT-PCR) NEGATIVE (Negative) External Record Review External record reviewed: Inpatient record, Office record and Outpatient record Discharge Plan Discharge Clinical Impression: Elevated blood pressure reading Patient Disposition: Home, Self-Care Instructions: How to Take a Blood Pressure (ED), Hypertension (ED) Additional Instructions: You were evaluated in the emergency department today after having a high blood pressure reading at home yesterday. Your blood pressure was normal in the emergency department today and you were otherwise without symptoms. We recommend that you begin monitoring your blood pressure daily at the same time and keeping a record of your blood pressure readings which include the date and time. This way you can discuss your blood pressure trends with your primary care provider. Please call your PCP office to schedule a follow-up appointment. Return to the emergency department if you develop chest pain, difficulty breathing, headache, dizziness or lightheadedness, blurred vision, double vision or other changes in vision, difficulty with everyday tasks, new weakness, numbness, tingling to extremities or any other concerning symptoms. Prescriptions: No Action ondansetron 4 mg tablet,disintegrating 4 mg PO Q8H PRN (Reason: nausea and vomiting) Qty: 5 0RF prednisone 20 mg tablet 40 mg PO DAILY 5 Days Qty: 10 0RF prednisone 20 mg tablet 40 mg PO DAILY 5 Days Qty: 10 0RF levocetirizine 5 mg tablet 5 mg PO DAILY Qty: 10 0RF celecoxib 100 mg capsule 100 mg PO DAILY metformin 500 mg tablet 500 mg PO BID amlodipine 10 mg tablet 10 mg PO DAILY diclofenac sodium 1 % gel topical BID atorvastatin 20 mg tablet 20 mg PO QAM naproxen 500 mg tablet 500 mg PO BID Qty: 60 3RF Stand Alone Forms: Work/School Release Print Language: Chinese
[2023-08-31 14:13] LABS: Influenza A PCR NEGATIVE (Negative); Influenza B PCR NEGATIVE (Negative); Resp Syncy Virus RNA Qual PCR NEGATIVE (Negative); SARS COV2 PCR INHOUSE NEGATIVE (Negative)
--- OUTSIDE RECORDS SUMMARY | 2023-08-31 16:12 | XMS_ITS | Continuity of Care Document ---
Author Organization [facility] ter Address [address] [place] [id number] Care Team Providers Care Junior Business Analyst Name Role Phone Not on Staff, PCP Primary Care Physician Unavail able Encounter [facility] Date(s): 01/24/23 - 01/24/[address] [id number]- Discharge Disposition: A-D/C Home Attending Physician: Yuri Daley MD Admitting Physician: Yuri Daley MD Referring Physician: Not on Staff, Referring MD Allergies, Adverse Reactions, Alerts No Known Allergies Immunizations Given and Recorded Vaccine Date Status Refusal Reason tetanus/diphtheria/pertussis, acel(Tdap) 01/14/23 Given Patient Care team information Care Team Personnel Name: Not on Staff, PCP Position: [facility] Physician (General Medicine) Member Role: PCP
--- OUTSIDE RECORDS SUMMARY | 2023-08-31 16:12 | XMS_ITS | Continuity of Care Document ---
Author Organization [facility] ter Address [address] [place] [id number]- Care Team Providers Care Icing Mixer Name Role Phone Not on Staff, PCP Primary Care Physician Unavail able Encounter [facility] Date(s): 01/13/23 - 01/14/[address] [address]- Encounter Diagnosis Laceration of face(Final) - 01/13/23 Discharge Disposition: A-D/C Home Attending Physician: Melissa Lerner MD Admitting Physician: Melissa Lerner MD Referring Physician: Not on Staff, Referring MD Allergies, Adverse Reactions, Alerts No Known Allergies Immunizations Given and Recorded Vaccine Date Status Refusal Reason tetanus/diphtheria/pertussis, acel(Tdap) 01/14/23 Given Results Radiology Reports * Exam Date Time Procedure Performing Provider Status 01/14/23 12:[address] Cervical Spine W/O Contrast Merly Corona; Rafaela (Verified) Notes: (CT Cervical Spine W/O Contrast) Reason For Exam: Neck trauma, dangerous injury mechanism;Other: RESULT: CT Cervical Spine W/O Contrast CT Head/Brain W/O Contrast, CT Cervical Spine W/O Contrast INDICATION: ETOH fall; Reason: Other:; Head trauma, mod-severe; Clinical Question(s): Hematoma TECHNIQUE: Noncontrast head CT using axial technique was reconstructed in axial and coronal planes.Noncontrast spiral CT through the cervical spine was formatted in 3 planes. Automatic tube modulation was used for the cervical spine and iterative dose reconstruction was used for both the head and cervical spine to optimize scan parameters and image quality. CTDIvol Body: 18.00 mGy, DLP Body: 429 mGy*cm. CTDIvol Head: 40.70 mGy, DLP Head: 671 mGy*cm. COMPARISON: None. FINDINGS: Spring Coiling Machine Setter View Findings, Lines and Tubes: None. BRAIN AND EXTRA-AXIAL SPACES: No parenchymal hemorrhage, midline shift, or mass effect. Can-white matter differentiation is wellpreserved. No acute infarct. Negative insular ribbon sign. Atherosclerotic vascular calcification of the carotid arteries but negative hyperdense vessel sign. Ventricles, sulci, and basilar cisterns are normal. No white matter lesions. No subarachnoid hemorrhage. No subdural or epidural collection. CALVARIUM, SKULL BASE, AND SOFT TISSUES: No fractures or suspicious bony lesions. Polypoid mucosal thickening in the right greater than left maxillary sinuses. The remaining paranasal sinuses and mastoid air cells are clear. Visualized orbits and globes are intact. Scalp hematoma superficial to the right zygomatic arch and the right temporalis muscle. Subcutaneous gas is seen lateral to the right orbit. CERVICAL SPINE: No fracture. No acute osseous abnormalities. Normal alignment. No locked or perched facet. Mild multilevel degenerative disc space narrowing andend plate irregularity, most prominent at C6-C7 with a Schmorl's node at the inferior endplate of C6 and some opposing endplate irregularity. OTHER BONES: No acute abnormality. CERVICAL SOFT TISSUES AND LUNG APICES: Normal soft tissues. Visualized lung apices are clear. Normal thyroid. IMPRESSION: No acute abnormality of the head or cervical spine. Hematoma superficial to the right zygomatic arch and temporalis muscle. Degenerative changes most pronounced at C6-C7. I have personally reviewed the images and I agree with this report. WSN: [id number] Ordering Physician: Shi Lopez Dictated By: Eric Meraz MD Dictated Date/Time: 01/14/23 5:46 am Reviewed By: Glo Gupta MD Signed By: Glo Gupta MD Signed Date/Time: 01/14/23 5:51 am Transcribed By: CÉSAR Transcribed Date/Time: 01/14/23 1:15 am * Exam Date Time Procedure Performing Provider Status 01/14/23 12:[address] Head/Brain W/O Contrast Henrique Cespedes; Rafaela (Verified) Notes: (CT Head/Brain W/O Contrast) Reason For Exam: Head trauma, mod-severe;Other: RESULT: CT Head/Brain W/O Contrast CT Head/Brain W/O Contrast, CT Cervical Spine W/O Contrast INDICATION: ETOH fall; Reason: Other:; Head trauma, mod-severe; Clinical Question(s): Hematoma TECHNIQUE: Noncontrast head CT using axial technique was reconstructed in axial and coronal planes.Noncontrast spiral CT through the cervical spine was formatted in 3 planes. Automatic tube modulation was used for the cervical spine and iterative dose reconstruction was used for both the head and cervical spine to optimize scan parameters and image quality. CTDIvol Body: 18.00 mGy, DLP Body: 429 mGy*cm. CTDIvol Head: 40.70 mGy, DLP Head: 671 mGy*cm. COMPARISON: None. FINDINGS: Spring Coiling Machine Setter View Findings, Lines and Tubes: None. BRAIN AND EXTRA-AXIAL SPACES: No parenchymal hemorrhage, midline shift, or mass effect. Can-white matter differentiation is wellpreserved. No acute infarct. Negative insular ribbon sign. Atherosclerotic vascular calcification of the carotid arteries but negative hyperdense vessel sign. Ventricles, sulci, and basilar cisterns are normal. No white matter lesions. No subarachnoid hemorrhage. No subdural or epidural collection. CALVARIUM, SKULL BASE, AND SOFT TISSUES: No fractures or suspicious bony lesions. Polypoid mucosal thickening in the right greater than left maxillary sinuses. The remaining paranasal sinuses and mastoid air cells are clear. Visualized orbits and globes are intact. Scalp hematoma superficial to the right zygomatic arch and the right temporalis muscle. Subcutaneous gas is seen lateral to the right orbit. CERVICAL SPINE: No fracture. No acute osseous abnormalities. Normal alignment. No locked or perched facet. Mild multilevel degenerative disc space narrowing andend plate irregularity, most prominent at C6-C7 with a Schmorl's node at the inferior endplate of C6 and some opposing endplate irregularity. OTHER BONES: No acute abnormality. CERVICAL SOFT TISSUES AND LUNG APICES: Normal soft tissues. Visualized lung apices are clear. Normal thyroid. IMPRESSION: No acute abnormality of the head or cervical spine. Hematoma superficial to the right zygomatic arch and temporalis muscle. Degenerative changes most pronounced at C6-C7. I have personally reviewed the images and I agree with this report. WSN: [id number] Ordering Physician: Shi Lopez Dictated By: Eric Meraz MD Dictated Date/Time: 01/14/23 5:46 am Reviewed By: Glo Gupta MD Signed By: Glo Gupta MD Signed Date/Time: 01/14/23 5:51 am Transcribed By: CÉSAR Transcribed Date/Time: 01/14/23 1:15 am Vital Signs Most recent to oldest [Reference Range]: 1 2 3 Oxygen Saturation [94-100 %] 98 % (01/14/23 2:36 AM) 97 % (01/14/23 12:47 AM) 98 % (01/13/23 9:45 PM) Pulse Rate [55-90 bpm] 70 bpm (01/14/23 2:36 AM) 70 bpm (01/14/23 12:47 AM) 79 bpm (01/13/23 9:45 PM) Blood Pressure [90-138/55-84 mm Hg] 129/87mm Hg (01/14/23 2:36 AM) 121/87mm Hg (01/14/23 12:47 AM) 140/104mm Hg *H* (01/13/23 9:45 PM) Respiratory Rate [16-30 br/min] 16 br/min (01/14/23 2:36 AM) 18 br/min (01/14/23 12:47 AM) 18 br/min (01/13/23 9:45 PM) Temperature [96.8-100.4 DegF] 97.3 DegF (01/13/23 9:45 PM) Mode of Delivery (Oxygen) Room air (01/14/23 2:36 AM) Room air (01/14/23 12:47 AM) Room air (01/13/23 9:45 PM) Blood pressure sites Arm, right (01/14/23 2:36 AM) Arm, left (01/14/23 12:47 AM) Arm, right (01/13/23 9:45 PM) Temperature Route Oral (01/13/23 9:45 PM) EKG study * Event Display: ECG 12-Lead Authored Date: Please click on pdf link to open report * Event Display: ECG 12-Lead Authored Date: Ventricular Rate: 76 BPM Atrial Rate: 76 BPM P-R Interval: 168 ms QRS Duration: 98 ms Q-T Interval: 376 ms QTC Calculation(Bazett): 423 ms P [place]: 56 degrees R [place]: 53 degrees T [place]: -5 degrees Normal sinus rhythm Normal ECG No previous ECGs available Confirmed by ANURAG ISRAEL ([id number]) on 01/14/2023 4:09:58 PM [place]: ANURAG ISRAEL Note * Doris Bojorquez MD: PERFORM Event Display: Patient Education Leaflets Authored Date: [id number] Laceration, All Closures ?? [id number] Laceration, All Closures A??laceration is a cut through the skin. This will usually need stitches or holly if it's deep. Minor cuts may be treated with a surgical tape closure or??skin glue. Home care ??? Your healthcare provider may prescribe an antibiotic. This is to help prevent infection. Followall instructions for taking this medicine. Take the medicine every day until it's gone, or you are told to stop. You should not have any left over. ??? The provider may prescribe medicines for pain. If no pain medicines were prescribed, you can use udcp-zvo-hmsusxc pain medicines. Follow instructions for taking any pain medicines. Talk with your provider before using these medicines if you have chronic liver or kidney disease, or ever had a stomach ulcer or digestive bleeding. ??? Follow the provider???s instructions on how to care for the cut. ??? Keep the wound clean and dry. Don't get the wound wet until you are told it's OK to do so.??If the area gets wet, gently pat it dry with a cleancloth. Replace the wet bandage with a dry one. ??? If a bandage was applied and it becomes wet or dirty, replace it. Otherwise, leave it in place for the first 24 hours. ??? Caring for stitches or holly: Once you no longer need to keep them dry, clean the wound daily. First remove the bandage. Then wash the area gently with soap and clean running water, or as directed by the??provider. Use a wet cotton swab to loosen and remove any blood or crust that forms. After cleaning, apply a thin layerof antibiotic ointment if advised. Then put on a new bandage unless you are told not to. ??? Caringfor skin glue: Don???t apply liquid, ointment, or cream on the wound while the glue is in place.??Don't do activities that cause heavy sweating. Protect the wound from sunlight.??Don't scratch, rub, or pick at the adhesive film. Don't place tape directly over the film.??The glue should peel off naturally in 5 to 10 days.? Caring for surgical tape: Keep the area dry. If it gets wet, blot it dry with a clean towel. Surgical tape often falls off in 7 to 10 days. If it has not fallen off after10 days, you can take it off yourself. Put mineral oil or petroleum jelly on a cotton ball and gently rub the tape until it's removed. ??? Once you can get the wound wet, you may shower as normal. Don't soak the wound in water (no tub baths or swimming). ??? Even with correct treatment, a wound infection may sometimes occur. Check the wound daily for signs of infection listed below. Scalp wounds Follow your healthcare provider's specific instructions on showering. During the first 2 days, you may carefully rinse your hair in the shower to remove blood, glass, or dirt particles. After 2 days,you may shower and shampoo your hair normally. Don't soak your scalp in the tub or go swimming until the stitches or holly have been removed. Talk with your healthcare provider before applying any antibiotic ointment to the wound. Mouth wounds Eat soft foods to reduce pain. If the cut is inside your mouth, clean by rinsing after each meal and at bedtime with a mixture of equal parts water and hydrogen peroxide (don't swallow!). Or you can use a cotton swab to directly apply hydrogen peroxide onto the cut. You may also be prescribed a chlorhexidine solution to rinse with. Mouth wounds can be painful when eating. You may use an rxjh-ibj-tdibddu local numbing solution for pain relief. If this isn't available, you may use any numbing solution intended for teething babies. You may apply this directly to the sores with a cotton-tip swab or with your clean finger. ?? Follow-up care Follow up with your healthcare provider as advised.??Ask your provider how long stitches should be left in place. Be sure to return for stitch removal as directed. If dissolving stitches were used inthe mouth, these should fall out or dissolve without the need for removal. If tape closures were used, remove them yourself when your provider advises if they haven't fallen off on their own. If??skin glue was used, the film will wear off by itself. Generally, you should keep healing wounds out of direct sunlight for the first couple of months to try to lessen scarring. ?? When to get medical advice Call your healthcare provider right away??if any of these occur: ??? Signs of infection, including increasing pain in the wound, increasing wound redness or swelling, or pus or bad odor coming from the wound ??? Fever of??100.4??F (38.??C)??or higher, or as advised by your provider ??? Chills ??? Stitches or holly come apart or fall out, or surgical tape falls off before 7 days and the wound appears to be reopening ??? Wound edges reopen ??? Wound changes colors ??? Numbness around the wound after any numbing medicine should have worn off ??? Decreased movement around the injured area ?? Call 911 Call 911??if you can't control the wound bleeding??with direct pressure. ?? Last Reviewed Date: 2021 ?? 4583-7253 [employer]. All rights reserved. This information is not intended as a substitute for professional medical care. Always follow your healthcare professional's instructions. ?? * Doris Bojorquez MD: PERFORM Event Display: Patient Education Leaflets Authored Date: [id number] Laceration: How to Minimize Scarring ?? [id number] Laceration: How to Minimize Scarring A laceration is a cut through one or more layers of the skin. Cuts heal as the edges of the cut grow together. After the cut heals, the skin may not look exactly the same. The abdi left behind is called a scar. Scars are a natural part of the healing process. They are hard to avoid. How much you may scar depends on the depth of the cut, the type of cut (straight or irregular), its location on your body, your age, and how your skin heals. Some people tend to heal with more scarring than others. Most scars fade and become less noticeable over time. You can take steps to help this process along. Note:??Please tell the staff about your last tetanus shot. Also tell them if your wound was caused by a dann or dirty object. What you can do The tips below can help reduce scarring as your wound heals. ??? Keep the wound clean.??Unless you are told to keep the area dry, gently wash the area with mild soap and water. You don't need to use antibacterial soap.? Keep the wound moist.??Apply petroleum jelly to the wound to keep it moistand prevent a scab from forming. Scabs lengthen the time it takes a wound to heal. ??? Cover the wound.??Use a non-adhesive bandage or gauze pad with paper tape. Change the bandage daily or if it gets wet or dirty. ??? Try hydrating or silicone gel sheets.??These dressings keep the wound moist and may help it heal faster with less scarring. They may be useful for larger wounds, scrapes, sores, jones, or wounds with persistent redness. Ask your healthcare provider whether you should use this product on your wound. ??? If you have stitches (sutures), follow your healthcare provider's instructions.??Care for the wound as instructed. Also, return to have stitches removed on time. If you wait, scarring might be worse. ??? Use sunscreen.??Once the wound heals, apply sunscreen to the area daily.Sun may cause the scar to be more visible and discolored. ??? Once the wound heals, there is some evidence that qjvj-dvr-egtuzgt scar creams can reduce the appearance of a scar. ?? Follow-up care Make a follow-up appointment as directed by our staff. If you're advised to see a specialist or youhave concerns about scarring, contact a seismograph operator helper or plastic surgeon. ?? When to get medical advice Call your healthcare provider??right away??if any of these occur: ??? Fever above 100.4??F (38??C) , or as directed by your provider ??? Shaking chills ??? Bleeding that soaks the dressing ??? [place] fluid weeping from the wound ??? Increased drainage from the wound or drainage that is yellow, yellow-green, or has a bad odor ??? Increased swelling, pain, or redness in the skin around the wound ??? A change in the color or size of the wound ??? Increased fatigue ??? Loss of appetite ??? Stitches pull away from the wound or pull apart ?? Last Reviewed Date: 2021 ?? 0947-1245 [employer]. All rights reserved. This information is not intended as a substitute for professional medical care. Always follow your healthcare professional's instructions. ?? Patient Care team information Care Team Personnel Name: Not on Staff, PCP Position: [facility] Physician (General Medicine) Member Role: PCP Name: Melissa Lerner MD Position: [facility] ED Medicine MD Member Role: ED Attending Physician Address: Address: [address] [place] [address] Name: Marilou Reed RN Position: [facility] ED RN W/OE and Tasks Member Role: Patient Care Provider Name: Myrtle Garcia Position: [facility] ED TA [facility] Member Role: Patient Care Provider Name: Doris Bojorquez MD Position: [facility] Resident Member Role: ED Resident Address: Address: [address] [place] [address]
[2023-08-31 16:37] VITALS: BP 137/94; PULSE 78; RESP 18; TEMP 36.7; O2SAT 98
[2023-08-31 16:50] VITALS: BP 137/94; PULSE 78; RESP 18; TEMP 36.7; O2SAT 98
== END 2023-08-31 16:51 | disposition home or self-care (01) ==
PROVIDERS: Nurse Practitioner Family; Emergency Provider Emergency Medicine; PCP Internal Medicine Geriatric Medicine
DX: R51.9 Headache, unspecified (principal); R03.0 Elevated blood-pressure reading, without diagnosis of hypertension; Z11.52 Encounter for screening for COVID-19; Z20.822 Contact with and (suspected) exposure to COVID-19
CPT/HCPCS: 0241U; 99282; 99283

== ENCOUNTER 2024-04-27 08:00 | Outpatient (REF) | payer OTHER, SELFPAY ==
[2024-04-27 09:02] LABS: Albumin Level 4.3 g/dL (3.5-5.0); Alkaline Phosphatase 58 U/L (39-117); Anion Gap 11 (12-20); Aspartate Amino Transferase 30 U/L (5-37); Bilirubin Total 0.6 mg/dL (0.0-1.0); Blood Urea Nitrogen 15 mg/dL (9-16); Calcium 9.6 mg/dL (8.4-10.2); Carbon Dioxide 27 mmol/L (22-29); Chloride 108 mmol/L (96-108); Cholesterol 171 mg/dL (<200); Estimated Glomerular Filt Rate > 60; Glucose Random 119 mg/dL (60-115); HDL Cholesterol 41 mg/dL (>40); LDL Cholesterol Calculated 114 mg/dL (<100); Potassium 4.3 mmol/L (3.3-5.1); Sodium 142 mmol/L (135-145); Total Protein 7.5 g/dL (6.5-8.0); Triglycerides 82 mg/dL (<150)
[2024-04-27 09:58] LABS: Alanine Aminotransferase 47 U/L (0-40)
== END 2024-04-27 08:01 | disposition home or self-care (01) ==
LOC: HO.LAB 08:00
PROVIDERS: PCP Internal Medicine Geriatric Medicine; Visit Provider Internal Medicine Geriatric Medicine
DX: I10 Essential (primary) hypertension (principal); R73.03 Prediabetes; Z79.899 Other long term (current) drug therapy
CPT/HCPCS: 36415; 80053; 80061